=== PATIENT | male | born 1960 | race Caucasian/White ===

== ENCOUNTER 2018-09-20 11:35 | Inpatient (IN) ==
[2018-09-20] MEDS ORDERED: Vancomycin Inj 1,000 MG in Sodium Chlor 0.9% Inj 250 ML IV.SIG ONE (15:09)
[2018-09-20] MEDS ORDERED: Piperacil/Tazo 4.5 GM Premix 4.5 GM/100 ML BAG IV.SIG SCH (15:15)
[2018-09-20 15:39] LABS: Baso # (Auto) 0.1 th/mm3 (0.0-0.2); Baso % (Auto) 0.7 % (0.0-2.0); Eos # (Auto) 0.7 th/mm3 (0.0-0.4); Eos % (Auto) 7.3 % (0.0-4.0); Hematocrit 48.6 % (39.0-51.0); Hemoglobin 16.5 gm/dL (13.0-17.0); Lymph # (Auto) 1.7 th/mm3 (1.0-4.8); Lymph % (Auto) 17.2 % (9.0-44.0); Mean Corpuscular HGB Conc 33.9 % (32.0-36.0); Mean Corpuscular Hemoglobin 32.5 pg (27.0-34.0); Mean Corpuscular Volume 95.8 fL (80.0-100.0); Mean Platelet Volume 8.7 fL (7.0-11.0); Mono # (Auto) 0.6 th/mm3 (0.0-0.9); Mono % (Auto) 6.5 % (0.0-8.0); Neut # (Auto) 6.6 th/mm3 (1.8-7.7); Neut % (Auto) 68.3 % (16.0-70.0); Platelet Count 140 th/mm3 (150-450); Red Blood Count 5.07 mil/mm3 (4.50-5.90); White Blood Count 9.7 th/mm3 (4.0-11.0)
--- NOTE | 2018-09-20 15:44 | ED ---
HPI General Chief complaint: Extremity Problem,Nontraumatic Stated complaint: Left foot complaint Time Seen by Provider: 09/20/18 14:55 Source: patient and family Limitations: no limitations History of Present Illness HPI Narrative: Patient is a 58-year-old male, medical history significant for AAA and osteoarthritis, who presents with complaint of left foot wound. He states that he works at [employer] and was emptying a large object approximately 1 month ago when it dropped onto his foot and punctured his boot which then punctured his foot. He was on antibiotics for 1 week and reports some improvement. He still had some chronic wound to his great toe but states it was doing well. he worked heavily over the last several days and has had sudden worsening. He has not had fever or chills. He went to the [place] [facility] where he was told he needed to come to the emergency department for IV antibiotics. He states that his foot is red and it has started to go up his ankle all of a sudden. He does not have pain outside of the erythematous regions. MD Complaint: Reports extremity pain and extremity swelling Onset (ago): day(s) Pain Consistency: constant Location: Reports left Quality: Reports aching and dull Radiation: Reports proximal Relieving factors: nothing Exacerbating factors: walking and palpation Associated symptoms: Reports denies other symptoms Context: Reports other Related Data Home Medications Medication Instructions Recorded Confirmed No Known Home Medications 09/20/18 09/20/18 Allergies Allergy/AdvReac Type Severity Reaction Status Date / Time No Known Allergies Allergy Verified 09/20/18 12:13 Review of Systems ROS: all other systems reviewed are negative [facility] Medical History Medical History AAA (abdominal aortic aneurysm) without rupture (Acute) Osteoarthritis (Acute) Patient denies medical problems (Acute) Social History Social History Substance History: No History of Abuse Second Hand Smoke Exposure: No Smoking Status: Current every day smoker Tobacco Type: Cigarettes How Often Do You Have a Drink Containing Alcohol: Monthly or less Recent [facility] within the Last 8 Weeks: No Recent Out of Country Travel within the Last 8 Weeks: No Immunization History Tetanus Immunization: <5 Years Tetanus Immunization Year if Known: 2018 Exam Narrative Exam Narrative: GENERAL: Well-appearing pleasant male in no acute distress SKIN: Focused skin assessment warm/dry. Erythematous regions to much of the top of the left foot with areas of dark possible necrosis to the bottom of several toes with a wet wound. He does have erythema just proximal to the ankles. No pain out of proportion. HEAD: Atraumatic. Normocephalic. EYES: Pupils equal and round. No scleral icterus. No injection or drainage. ENT: No nasal bleeding or discharge. Mucous membranes pink and moist. NECK: Trachea midline. No JVD. CARDIOVASCULAR: Regular rate and rhythm. No murmur appreciated. Intact and equal peripheral pulses. RESPIRATORY: No accessory muscle use. Clear to auscultation. Breath sounds equal bilaterally. GASTROINTESTINAL: Abdomen soft, non-tender, nondistended. Hepatic and splenic margins not palpable. MUSCULOSKELETAL: No obvious deformities. No clubbing. No cyanosis. No edema. NEUROLOGICAL: Awake and alert. No obvious cranial nerve deficits. Motor grossly within normal limits. Normal speech. PSYCHIATRIC: Appropriate mood and affect; insight and judgment normal. Course Initial Documented Vital Signs Temperature 98.3 F 09/20/18 12:09 Pulse Rate 84 09/20/18 12:09 Respiratory Rate 18 09/20/18 12:09 Blood Pressure 141/78 H 09/20/18 12:09 Pulse Oximetry 97 09/20/18 12:09 Last Documented Vital Signs Temperature 98.3 F 09/20/18 12:09 Pulse Rate 77 09/20/18 15:44 Respiratory Rate 18 09/20/18 15:44 Blood Pressure 127/76 09/20/18 15:44 Pulse Oximetry 98 09/20/18 15:44 Medical Decision Making [facility] Narrative Medical decision making narrative: Patient is a 58-year-old male who came with complaint of left foot wound has suddenly worsened over the last several days. He appears well but the wound is concerning. He has been hemodynamically stable while in the emergency department but nonetheless was empirically started on vancomycin and Zosyn. Lab work is relatively unremarkable and x-ray does not show gas and only shows chronic changes. I spoke to Dr. Cox, wet pan mixer on-call, regarding the patient's foot. He is going to see the patient when he is finished with his current case. The patient will be admitted for further evaluation and management. Medical Screen Exam Complete: Yes Emergency Medical Condition: Yes Differential Diagnosis Differential Diagnosis: Differential diagnosis includes but is not limited to cellulitis, necrotizing fasciitis, osteomyelitis. Medical Records Medical records reviewed: Yes I reviewed the patient's medical records. Lab Data Result diagrams: 09/20/18 15:20 09/20/18 15:20 Lab Results 09/20/18 09/20/18 09/20/18 Range/Units 15:20 15:20 15:20 WBC 9.7 (4.0-11.0) th/mm3 RBC 5.07 (4.50-5.90) mil/mm3 Hgb 16.5 (13.0-17.0) gm/dL Hct 48.6 (39.0-51.0) % MCV 95.8 (80.0-100.0) fL MCH 32.5 (27.0-34.0) pg MCHC 33.9 (32.0-36.0) % RDW 14.0 (11.6-17.2) % Plt Count 140 L (150-450) th/mm3 MPV 8.7 (7.0-11.0) fL Neut % (Auto) 68.3 (16.0-70.0) % Lymph % (Auto) 17.2 (9.0-44.0) % [place] % (Auto) 6.5 (0.0-8.0) % Eos % (Auto) 7.3 H (0.0-4.0) % Baso % (Auto) 0.7 (0.0-2.0) % Neut # (Auto) 6.6 (1.8-7.7) th/mm3 Lymph # (Auto) 1.7 (1.0-4.8) th/mm3 [place] # (Auto) 0.6 (0.0-0.9) th/mm3 Eos # (Auto) 0.7 H (0.0-0.4) th/mm3 Baso # (Auto) 0.1 (0.0-0.2) th/mm3 WBC Differential . Differential Comment Auto diff final ESR 1 (0-20) mm/hr Sodium 140 (136-145) meq/L Potassium 5.3 H (3.5-5.1) meq/L Chloride 109 H (98-107) meq/L Carbon Dioxide 28.8 (21.0-32.0) meq/L Anion Gap 2 L (5-15) meq/L BUN 15 (7-18) mg/dL Creatinine 1.10 (0.60-1.30) mg/dL Estimated GFR 69 L (>89) mL/min Random Glucose 102 (74-106) mg/dL Calcium 8.3 L (8.5-10.1) mg/dL C-Reactive Protein 3.32 H (0.00-0.30) mg/dL Imaging Data Radiologist's impression: Foot X-Ray 09/20/18 15:09 CONCLUSION: Chronic changes and no definite fracture for technique. Discharge Plan Discharge Disposition Patient Disposition: ED Admit(ED Internal Use Only) Discharge Condition Condition: Stable Discharge Order Discharge Orders: ED Use Only Admit Order (Routine); Ordered 09/20/18 Ordered By: Rebecca Goins Discharge Details Diagnosis: Cellulitis Physicians Team ED Provider: Rebecca Goins Primary Care Provider: [facility],Physician 's Attending Provider: Keith Ramírez Status ED Status: Admitted Patient
--- NOTE | 2018-09-20 15:58 | XR ---
EXAM DATE: 09/20/2018 3:54 PM EST AGE/SEX: 58 years / Male INDICATIONS: Left foot pain and inflammation 1 month post dropping bucket on foot. Inflammation to a ll 5 digits. CLINICAL DATA: This is the patient's initial encounter. Patient reports that signs and symptoms have been present for 1 month and indicates a pain score of 7/10. MEDICAL/SURGICAL HISTORY: None. None. COMPARISON: No prior exams available for comparison. FINDINGS: No definite fracture is identified for technique. Degenerative osteoarthritis is present within multiple interphalangeal joints and first metatarsophal angeal joint worse involving the first metatarsophalangeal joint to a slight degree. Small calcaneal spur is present at the fracture site of the plantar aponeurosis and Achilles tendon. CONCLUSION: Chronic changes and no definite fracture for technique. Electronically signed by: Anne Cheema MD Board Certified Radiologist 09/20/2018 3:57 PM EST
[2018-09-20 16:13] LABS: C-Reactive Protein 3.32 mg/dL (0.00-0.30); Calcium 8.3 mg/dL (8.5-10.1); Carbon Dioxide 28.8 meq/L (21.0-32.0)
[2018-09-20 16:16] LABS: Potassium 5.3 meq/L (3.5-5.1)
--- NOTE | 2018-09-20 17:16 | P.HPFP ---
History of Present Illness Primary Care Physician: [facility] <Keith Ramírez 09/20/18 21:16> [facility] <Liana Horowitz V 09/20/18 17:15> Chief Complaint: foot infection <Liana Horowitz V 09/20/18 17:15> History of Present Illness: Mr Murguia, work [employer], about a month ago a grease bucket slipped from hand and fell into L foot, creating a laceration. Small scrape, did not bleed. Boot was tore. Pt went to [place], and received antibiotics for one week. With improvement, but since then it started progresively getting worse. Today He saw a Dr at the [place], and was told to come to ED for evaluation. Pt states is painful, aching, if wrapped in bandages is a pulsating pain. From time to time he gets a sharp pain, he thinks is nerve pain. Wound is also oozing clear/ pink discharge from all over, to the point ot wets his entire socks. Cannot tell temperature difference. No fevers, no chills. PMH: rectal muscle fascia separation. Poor dentition Surgeries: none Social: Used to be in the [employer] for 3 yrs, now works at [employer] as a cook. Lives with , for 22 yrs. Smokes a pack/ days, cigarettes, smoked since 11. Never quit smoking. Does not drink alcohol. Denies recreational drug use. Family: Mother, living, has one lung, unknown etiology. Sister, healthy as far as he knows. Medications: none Allergies: NKA <Liana Horowitz V 09/20/18 17:15> - Diagnosis (1) Cellulitis (2) Left foot infection (3) Smoking addiction (4) Nutrition, metabolism, and development symptoms (5) DVT prophylaxis <Keith Ramírez 09/20/18 21:16> (1) Cellulitis (2) Left foot infection (3) Smoking addiction (4) Nutrition, metabolism, and development symptoms (5) DVT prophylaxis <Liana Horowitz V 09/20/18 18:37> Inpatient Certification: I certify that the inpatient services were ordered in accordance with Medicare regulations governing the order. This includes certification that hospital inpatient services are reasonable and necessary and in the case of services not specified as inpatient-only under 42 CFR 419.22(n), that they are appropriately provided as inpatient services in accordance to with the 2-midnight benchmark under 43 CFR 412.3(e) <Keith Ramírez - 09/20/18 20:55> Review of Systems Constitutional: Denies body ache(s), Denies chills, Denies fever(s), Denies night sweats <Sahramirna Clarke [facility] 09/20/18 17:15> Ears, Nose, Mouth, and Throat: Denies dental pain <Sahra [address] 09/20/18 17:15> Cardiovascular: Denies chest pain, Denies shortness of breath, Denies shortness of breath with activity <Sahra [address] 09/20/18 17:15> Respiratory: Denies cough, Denies wheezing <Sahra [address] 17:15> Gastrointestinal: Denies abdominal pain, Denies nausea, Denies vomiting < Sahra [address] 09/20/18 17:15> Genitourinary: Denies urinary frequency, Denies urinary hesitancy, Denies urinary urgency <Sahramirna Clarke [address] 09/20/18 17:15> Musculoskeletal: Reports abnormal walking (Limping due to injury), Reports joint swelling, Reports limited joint movement <Sahramirna Clarke [address] 11/07 17:15> Skin/Breast: Reports lesions, Reports non-healing lesions, Reports redness, Reports skin ulcer, Reports wounds <Sahra [address] 09/20/18 17:15> PMFSH - History History Provided By: Patient <Sahra Clarke [address] 09/20/18 17:15> - Medical / Surgical Hx Neg / Unobtainable Medical Problems Denied: Yes <Sahra Clarke [facility] 09/20/18 17:15> Surgical History: No Previous Surgery <Sahramirna Clarke [address] 09/20/18 17: 15> - Medical History Medical History: Medical History (Last Reviewed 09/20/18 @ 17:15 by Liana Lopez MD , R1) AAA (abdominal aortic aneurysm) without rupture Osteoarthritis Patient denies medical problems <Keith Ramírez - 09/20/18 20:55> Medical History (Last Reviewed 09/20/18 @ 17:15 by Liana Lopez MD , R1) AAA (abdominal aortic aneurysm) without rupture Osteoarthritis Patient denies medical problems <Liana Horowitz V 09/20/18 17:15> - Social History I have reviewed the patient's Social History: Yes <Liana Horowitz V 09/20/18 17:15> - Tobacco History Second Hand Smoke Exposure: No <Liana Horowitz V 09/20/18 17:15> Tobacco Use In Past 30 Days: Yes <Liana Horowitz V 09/20/18 17:15> Smoking Status: Current every day smoker <Liana Horowitz V 09/20/18 17:15> Tobacco Type: Cigarettes <Sahra Goreira Liana Lopez V 09/20/18 17:15> Cigarettes Per Day: 20 <Liana Horowitz V 09/20/18 17:15> Years Smoked: 47 <Liana Horowitz V 09/20/18 17:15> - Alcohol History How Often Do You Have a Drink Containing Alcohol: Monthly or less <Liana Horowitz V 09/20/18 17:15> - Substance Use History Substance History: No History of Abuse <Liana Horowitz V 09/20/18 17 :15> - Travel History Recent Travel in the [facility] Within the Last 8 Weeks: No <Liana Horowtiz V 09/20/18 17:15> Recent Travel Out of the Country Within the Last 8 Weeks: No <Liana Horowitz V 09/20/18 17:15> - Immunization History Tetanus Immunization: <5 Years <Liana Horowitz V 09/20/18 17:15> Tetanus Immunization Year if Known: 2017 <Liana Horowitz V 09/20/18 17:15> Medications and Allergies Allergies Allergy/AdvReac Type Severity Reaction Status Date / Time No Known Allergies Allergy Verified 09/20/18 12:13 <Keith Ramírez - 09/20/18 21:16> Home Medications Medication Instructions Recorded Confirmed Type No Known Home Medications 09/20/18 09/20/18 History <Keith Ramírez - 09/20/18 21:16> Active Medications: Active Medications Acetaminophen (Tylenol) 650 mg PO Q4H PRN PRN Reason: Temp > 100.4 Hydrocodone Bitart/Acetaminophen (Malone 5/325) 1 tab PO Q6H PRN PRN Reason: PAIN SCALE 1 TO 10 Enoxaparin Sodium (Lovenox Inj) 40 mg SQ Q24H LELO Piperacillin/Tazobactam/Dextrose (Zosyn 3.375 Gm Premix) 3.375 gm in 50 mls @ 100 mls/hr IV.SIG Q6H LELO Stop: 09/26/18 23:59 Ibuprofen (Motrin) 400 mg PO Q6HR PRN PRN Reason: PAIN 1-10 Naloxone HCl (Narcan Inj) 0.4 mg IV.PUSH UNSCH PRN PRN Reason: SEE LABEL COMMENTS Nicotine (Habitrol 14 Mg Patch.24 Hr) 1 patch T-DERMAL DAILY PRN PRN Reason: craving Ondansetron HCl (Zofran Inj) 4 mg IV.PUSH Q6H PRN PRN Reason: NAUSEA OR VOMITING Patch Removal (Remove Old Patch) 1 each T-DERMAL HS LELO Senna/Docusate Sodium (Evie-Colace) 1 tab PO BID LELO Sodium Chloride (Ns Flush) 2 ml IV.FLUSH BID LELO Sodium Chloride (Ns Flush) 2 ml IV.FLUSH PRN PRN PRN Reason: FLUSH AFTER USING IV ACCESS <Keith Ramírez - 09/20/18 21:16> Active Medications Piperacillin/Tazobactam/Dextrose (Zosyn 4.5 Gm Premix) 4.5 gm in 100 mls @ 200 mls/hr IV.SIG ONCE LELO Last Infusion: 09/20/18 16:10 Dose: Infused <Sahra LopezCarolyn - 09/20/18 17:15> Exam Vital signs: Vital Signs 09/20/18 12:09 09/20/18 15:44 09/20/18 19:17 Temperature 98.3 F Pulse Rate 84 77 69 Respiratory Rate 18 18 18 Blood Pressure 141/78 H 127/76 131/71 Pulse Oximetry 97 98 98 Intake & Output 09/20/18 09/20/18 09/21/18 06:59 18:59 06:59 Intake Total 350 / 350 Balance 350 / 350 Weight 88.904 kg Intake: IV 350 / 350 Zosyn 4.5 GM Premix 4.5 gm In 100 / 100 100 ml @ 200 mls/hr IV.SIG ONCE LELO Rx#:[id number] Vancomycin Inj 1,000 MG In NS 250 / 250 Inj 250 ML @ 250 mls/hr IV.SIG ONCE ONE Rx#:[id number] <Keith Ramírez - 09/20/18 21:16> Vital Signs 09/20/18 12:09 09/20/18 15:44 Temperature 98.3 F Pulse Rate 84 77 Respiratory Rate 18 18 Blood Pressure 141/78 H 127/76 Pulse Oximetry 97 98 Intake & Output 09/19/18 09/20/18 09/20/18 18:59 06:59 18:59 Intake Total 100 / 100 Balance 100 / 100 Weight 88.904 kg Intake: IV 100 / 100 Zosyn 4.5 GM Premix 4.5 gm In 100 / 100 100 ml @ 200 mls/hr IV.SIG ONCE LELO Rx#:[id number] <Liana Horowitz V - 09/20/18 17:15> Results - Labs Result diagrams: 09/20/18 15:20 09/20/18 15:20 <Keith Ramírez - 09/20/18 21:16> Abnormal lab results 09/20/18 09/20/18 Range/Units 15:20 15:20 Plt Count 140 L (150-450) th/mm3 Eos % (Auto) 7.3 H (0.0-4.0) % Eos # (Auto) 0.7 H (0.0-0.4) th/mm3 Potassium 5.3 H (3.5-5.1) meq/L Chloride 109 H (98-107) meq/L Anion Gap 2 L (5-15) meq/L Estimated GFR 69 L (>89) mL/min Calcium 8.3 L (8.5-10.1) mg/dL C-Reactive Protein 3.32 H (0.00-0.30) mg/dL Short CBC 09/20/18 Range/Units 15:20 WBC 9.7 (4.0-11.0) th/mm3 Hgb 16.5 (13.0-17.0) gm/dL Hct 48.6 (39.0-51.0) % Plt Count 140 L (150-450) th/mm3 [place] 09/20/18 15:20 Sodium 140 Potassium 5.3 H Chloride 109 H Carbon Dioxide 28.8 BUN 15 Creatinine 1.10 Calcium 8.3 L <Keith Ramírez 09/20/18 21:16> Abnormal lab results 09/20/18 09/20/18 Range/Units 15:20 15:20 Plt Count 140 L (150-450) th/mm3 Eos % (Auto) 7.3 H (0.0-4.0) % Eos # (Auto) 0.7 H (0.0-0.4) th/mm3 Potassium 5.3 H (3.5-5.1) meq/L Chloride 109 H (98-107) meq/L Anion Gap 2 L (5-15) meq/L Estimated GFR 69 L (>89) mL/min Calcium 8.3 L (8.5-10.1) mg/dL C-Reactive Protein 3.32 H (0.00-0.30) mg/dL Short CBC 09/20/18 Range/Units 15:20 WBC 9.7 (4.0-11.0) th/mm3 Hgb 16.5 (13.0-17.0) gm/dL Hct 48.6 (39.0-51.0) % Plt Count 140 L (150-450) th/mm3 [place] 09/20/18 15:20 Sodium 140 Potassium 5.3 H Chloride 109 H Carbon Dioxide 28.8 BUN 15 Creatinine 1.10 Calcium 8.3 L <Liana Horowitz V - 09/20/18 17:15> - Imaging Impressions Foot X-Ray 09/20/18 15:09 CONCLUSION: Chronic changes and no definite fracture for technique. <Keith Ramírez 09/20/18 21:16> Impressions Foot X-Ray 09/20/18 15:09 CONCLUSION: Chronic changes and no definite fracture for technique. <Liana Horowitz V - 09/20/18 17:15> Caprini VTE Risk Assessment Caprini VTE Risk Assessment: Moderate/High Risk (score >= 2) <Keith Ramírez - 09/20/18 21:16> Caprini Risk Assessment Model: Point Value = 1 Point Value = 2 Point Value = 3 Point Value = 5 Age 41-60 Minor surgery BMI > 25 kg/m2 Swollen legs Varicose veins or History of unexplained or recurrent spontaneous Oral contraceptives or hormone replacement Sepsis (< 1 month) Serious lung disease, including pneumonia (< 1 month) Abnormal pulmonary function Acute myocardial infarction Congestive heart failure (< 1 month) History of inflammatory bowel disease Medical patient at bed rest Age 61-74 Arthroscopic surgery Major open surgery (> 45 min) Laparoscopic surgery (> 45 min) Malignancy Confined to bed (> 72 hours) Immobilizing plaster cast Central venous access Age >= 75 History of VTE Family history of VTE Factor V Leiden Prothrombin [id number] Lupus anticoagulant Anticardiolipin antibodies Elevated serum homocysteine Heparin-induced thrombocytopenia Other congenital or acquired thrombophilia Stroke (< 1 month) Elective arthroplasty Hip, pelvis, or leg fracture Acute spinal cord injury (< 1 month) <Keith Ramírez - 09/20/18 21:15> Point Value = 1 Point Value = 2 Point Value = 3 Point Value = 5 Age 41-60 Minor surgery BMI > 25 kg/m2 Swollen legs Varicose veins or History of unexplained or recurrent spontaneous Oral contraceptives or hormone replacement Sepsis (< 1 month) Serious lung disease, including pneumonia (< 1 month) Abnormal pulmonary function Acute myocardial infarction Congestive heart failure (< 1 month) History of inflammatory bowel disease Medical patient at bed rest Age 61-74 Arthroscopic surgery Major open surgery (> 45 min) Laparoscopic surgery (> 45 min) Malignancy Confined to bed (> 72 hours) Immobilizing plaster cast Central venous access Age >= 75 History of VTE Family history of VTE Factor V Leiden Prothrombin [id number] Lupus anticoagulant Anticardiolipin antibodies Elevated serum homocysteine Heparin-induced thrombocytopenia Other congenital or acquired thrombophilia Stroke (< 1 month) Elective arthroplasty Hip, pelvis, or leg fracture Acute spinal cord injury (< 1 month) <Liana Horowitz V - 09/20/18 17:15> Prophylaxis Regimen: Total Risk Factor Score Risk Level Prophylaxis Regimen 0-1 Low Early ambulation 2 Moderate Order ONE of the following: *Sequential Compression Device (SCD) *Heparin 5000 units SQ BID 3-4 Higher Order ONE of the following medications: *Heparin 5000 units SQ TID *Enoxaparin/Lovenox 40 mg SQ daily (WT < 150 kg, CrCl > 30 mL/min) *Enoxaparin/Lovenox 30 mg SQ daily (WT < 150 kg, CrCl > 10-29 mL/min) *Enoxaparin/Lovenox 30 mg SQ BID (WT < 150 kg, CrCl > 30 mL/min) AND/OR *Sequential Compression Device (SCD) 5 or more Highest Order ONE of the following medications: *Heparin 5000 units SQ TID (Preferred with Epidurals) *Enoxaparin/Lovenox 40 mg SQ daily (WT < 150 kg, CrCl > 30 mL/min) *Enoxaparin/Lovenox 30 mg SQ daily (WT < 150 kg, CrCl > 10-29 mL/min) *Enoxaparin/Lovenox 30 mg SQ BID (WT < 150 kg, CrCl > 30 mL/min) AND *Sequential Compression Device (SCD) <Keith Ramírez - 09/20/18 21:15> Total Risk Factor Score Risk Level Prophylaxis Regimen 0-1 Low Early ambulation 2 Moderate Order ONE of the following: *Sequential Compression Device (SCD) *Heparin 5000 units SQ BID 3-4 Higher Order ONE of the following medications: *Heparin 5000 units SQ TID *Enoxaparin/Lovenox 40 mg SQ daily (WT < 150 kg, CrCl > 30 mL/min) *Enoxaparin/Lovenox 30 mg SQ daily (WT < 150 kg, CrCl > 10-29 mL/min) *Enoxaparin/Lovenox 30 mg SQ BID (WT < 150 kg, CrCl > 30 mL/min) AND/OR *Sequential Compression Device (SCD) 5 or more Highest Order ONE of the following medications: *Heparin 5000 units SQ TID (Preferred with Epidurals) *Enoxaparin/Lovenox 40 mg SQ daily (WT < 150 kg, CrCl > 30 mL/min) *Enoxaparin/Lovenox 30 mg SQ daily (WT < 150 kg, CrCl > 10-29 mL/min) *Enoxaparin/Lovenox 30 mg SQ BID (WT < 150 kg, CrCl > 30 mL/min) AND *Sequential Compression Device (SCD) <Liana Horowitz V - 09/20/18 17:15> Assessment and Plan - Assessment (1) Cellulitis Code(s): L03.90 - Cellulitis, unspecified Status: Acute (2) Left foot infection Code(s): L08.9 - Local infection of the skin and subcutaneous tissue, unspecified Status: Acute (3) Smoking addiction Code(s): F17.200 - Nicotine dependence, unspecified, uncomplicated Status: Acute (4) Nutrition, metabolism, and development symptoms Code(s): R63.8 - Other symptoms and signs concerning food and fluid intake Status: Acute (5) DVT prophylaxis Status: Acute <Keith Ramírez - 09/20/18 21:16> (1) Cellulitis Code(s): L03.90 - Cellulitis, unspecified Status: Acute (2) Left foot infection Code(s): L08.9 - Local infection of the skin and subcutaneous tissue, unspecified Status: Acute (3) Smoking addiction Code(s): F17.200 - Nicotine dependence, unspecified, uncomplicated Status: Acute (4) Nutrition, metabolism, and development symptoms Code(s): R63.8 - Other symptoms and signs concerning food and fluid intake Status: Acute (5) DVT prophylaxis Status: Acute <Liana Horowitz V - 09/20/18 18:37> - Assessment and Plan 58-year-old male, with no PMH, admitted to the hospital due to left foot infection of one month duration, worsening in the last 2 days. Differential diagnoses include but not limited to cellulitis, osteomyelitis, necrosis of the toes. Infection of the left foot/cellulitis WBC within normal limits S/p 4.5 g of Zosyn IV once and vancomycin 1 g IV once X-ray with chronic changes and not fracture -Consult to podiatry, appreciate recommendations -Wound cultures pending -Continue Zosyn 4.5 g IV every 12 hours -We will keep n.p.o. for now Smoking 47-year history of smoking at least 1 pack/day Smoking cessation counseling provided -Nicotine patches available as needed FEN: - PO hydration - Monitor replace electrolytes as needed - Regular diet PPX: - Lovenox 40mg daily for DVT ppx - Zofran prn for nausea Pt seen and discussed with Dr. Ramírez <Liana Horowitz V - 09/20/18 18:54> - Attending Attestation The exam, history, and the medical decision-making described in the above note were completed with the assistance of the resident physician. I reviewed and agree with the findings presented. I attest that I had a [id number] encounter with the patient on the same day, and personally performed and documented my assessment and findings in the medical record. Examined with resident today. Despite smoking history including AAA, still has good peripheral pulses. but has weeping and macerated ventral forefoot with erythema and edema significant dorsally, no bullae. 1. Cellulitis of left foot Failed outpatient treatment Podiatry consulted, MRI pending Cont Vanc and Zosyn empirically before deep cultures Will need [facility] Check A1c 2. Tobacco use nicotine patch, admissions counselor on cessation 3. Hypertension Monitor and treat if needed 4. Thrombocytopenia Mild, will recheck. DVT ppx, will give this evening so as not to give tomorrow in AM in case podiatry wants 12 hrs before OR, can have diet when podiatry makes operative plan. <Keith Ramírez - 09/20/18 20:55> <Liana Horowitz V - Last Filed: 09/20/18 18:37> (1) Cellulitis Qualifiers: Site of cellulitis: extremity Laterality: left <Keith Ramírez K - Last Filed: 09/20/18 21:16> (1) Cellulitis Qualifiers: Site of cellulitis: extremity Laterality: left <Sahra Clarke Liana Lopez V - Last Filed: 09/20/18 18:37> (1) Cellulitis Qualifiers: Site of cellulitis: extremity Laterality: left <Keith Ramírez K - Last Filed: 09/20/18 21:16> (1) Cellulitis Qualifiers: Site of cellulitis: extremity Laterality: left
[2018-09-20] MEDS ORDERED: Acetaminophen 325 MG Tablet PO PRN (17:25)
[2018-09-20] MEDS ORDERED: Enoxaparin Inj 40 MG/0.4 ML Syringe SQ SCH (17:30)
[2018-09-20] MEDS ORDERED: Ibuprofen 400 MG Tablet PO PRN (17:31)
[2018-09-20] MEDS ORDERED: Naloxone Inj 0.4 MG/ML Vial IV.PUSH PRN (17:31)
--- NOTE | 2018-09-20 19:53 | MB ---
cc: William Cox DPM DATE: 09/20/2018 REASON FOR CONSULTATION: Infection, cellulitis, left foot. HISTORY OF PRESENT ILLNESS: This is a 58-year-old male who sustained some form of puncture wound or a crush injury where a heavy bucket was dropped on his foot. It punctured his boot, and he was sent to the [facility]. He took antibiotics for a week. He reported some improvement. He continued to work many hours per day and continued to smoke a pack of cigarettes a day. He noticed increased redness, drainage, and it started to ascend to his ankle and calf. Currently, I am seeing the patient at bedside. He denies any fevers or nausea. He is having some pain of his left lower extremity. PAST MEDICAL HISTORY: Abdominal aortic aneurysm without rupture. Osteoarthritis. No substance abuse. He is a current every day smoker. I am unsure of the antibiotics he had from the [place] over the past week. Inpatient medications, p.r.n. medication. He is also receiving Zosyn and vancomycin. ALLERGIES: If not stated, none listed. PHYSICAL EXAMINATION: GENERAL: Alert and oriented male seen at bedside, exhibiting unlabored respirations. He is verbal, appropriate. EXTREMITIES: The bilateral lower extremities are examined. Left lower extremity: There is noted to be expansile erythema and plantar purpura and skin sloughing of the sulcus of the foot. The foot appears to be warm. There is palpable pulses, dorsalis pedis and posterior tibialis. The distal aspect of the digits 1 through 5, there is capillary fill time. The patient has difficulty with range of motion secondary to the swelling. The redness appears to involve mainly the distal forefoot. There is no obvious puncture wound that could be seen. There are no obvious clinical signs of gas within the tissue or fluctuance. Right lower extremity is unremarkable. LABORATORY FINDINGS: White blood cell 9, hemoglobin and hematocrit 16 and 48, platelet count 140. ESR 1. Chem-7: Sodium 140, potassium 5.3, chloride 109, BUN 15, creatinine 1.1, estimated GFR 69. Random glucose is 102. Hemoglobin A1c pending. C-reactive protein is 3.32. Microbial findings: Blood and foot cultures ordered and pending. X-rays: No gas within the tissue. No obvious acute fracture. There are chronic changes, most consistent with osteoarthritis. MRI ordered and pending. ASSESSMENT AND PLAN: Left foot cellulitis, rule out abscess. PLAN: Operative debridement, and deep cultures will be taken within the next 24 hours. MRI is pending, so there may be a more formal incision and drainage. The patient will be n.p.o. after midnight. I do feel that the patient has adequate circulation despite smoking a pack a day for many years. He was counseled that in order to heal, he needed to quit. I will sign out the patient to Dr. Archie Clark who will assume care starting in the a.m. JACKIE Bojorquez/lou , 07:18 PM , 07:27 PM
[2018-09-20] MEDS ORDERED: Gadobutrol PF 10 MMOL/10 ML Vial (for RAD) IV.SIG ONE (21:02)
[2018-09-20 21:25] LABS: Hemoglobin A1c 5.7 % (4.3-6.0)
[2018-09-20] MEDS: Enoxaparin Inj 40 MG/0.4 ML Syringe SQ SCH (23:24)
[2018-09-20] MEDS: Senna/Docusate Sodium 8.6/50 MG Tablet PO SCH (23:25)
[2018-09-20] MEDS: Piperacil/Tazo 3.375 GM Premix 3.375 GM/50 ML PIGGYBACK IV.SIG SCH (23:30)
[2018-09-21] MEDS ORDERED: Piperacil/Tazo 4.5 GM Premix 4.5 GM/100 ML BAG IV.SIG SCH (04:00)
[2018-09-21] MEDS: Piperacil/Tazo 3.375 GM Premix 3.375 GM/50 ML PIGGYBACK IV.SIG SCH ×3 (05:48→16:42)
[2018-09-21 07:31] LABS: Baso # (Auto) 0.1 th/mm3 (0.0-0.2); Baso % (Auto) 0.7 % (0.0-2.0); Eos # (Auto) 0.7 th/mm3 (0.0-0.4); Eos % (Auto) 8.7 % (0.0-4.0); Hematocrit 46.6 % (39.0-51.0); Hemoglobin 15.7 gm/dL (13.0-17.0); Lymph # (Auto) 1.5 th/mm3 (1.0-4.8); Lymph % (Auto) 17.5 % (9.0-44.0); Mean Corpuscular HGB Conc 33.8 % (32.0-36.0); Mean Corpuscular Hemoglobin 32.2 pg (27.0-34.0); Mean Corpuscular Volume 95.4 fL (80.0-100.0); Mean Platelet Volume 9.1 fL (7.0-11.0); Mono # (Auto) 0.8 th/mm3 (0.0-0.9); Mono % (Auto) 9.6 % (0.0-8.0); Neut # (Auto) 5.4 th/mm3 (1.8-7.7); Neut % (Auto) 63.5 % (16.0-70.0); Platelet Count 120 th/mm3 (150-450); Red Blood Count 4.89 mil/mm3 (4.50-5.90); Red Cell Distribution Width 13.4 % (11.6-17.2); White Blood Count 8.5 th/mm3 (4.0-11.0)
[2018-09-21 08:18] LABS: Alanine Aminotransferase 19 U/L (12-78); Albumin 2.8 g/dL (3.4-5.0); Alkaline Phosphatase 77 U/L (45-117); Anion Gap 6 meq/L (5-15); Aspartate Aminotransferase 18 U/L (15-37); Blood Urea Nitrogen 14 mg/dL (7-18); Calcium 7.7 mg/dL (8.5-10.1); Carbon Dioxide 23.9 meq/L (21.0-32.0); Chloride 110 meq/L (98-107); Glomerular Filtration Rate 84 mL/min (>89); Glucose,Random 105 mg/dL (74-106); Sodium 140 meq/L (136-145); Total Protein 6.3 g/dL (6.4-8.2)
[2018-09-21] MEDS ORDERED: Vancomycin Inj 1,000 MG in Sodium Chlor 0.9% Inj 250 ML IV.SIG SCH (09:23)
[2018-09-21] MEDS ORDERED: Vancomycin Consult Pharmacy OTHER PRN (09:25)
--- NOTE | 2018-09-21 09:39 | MR ---
EXAM DATE: 09/20/2018 9:32 PM EST AGE/SEX: 58 years / Male INDICATIONS: Abscess. Non healing medial side of great toe wound CLINICAL DATA: This is the patient's initial encounter. Patient reports that signs and symptoms have been present for 1 month and indicates a pain score of 7/10. MEDICAL/SURGICAL HISTORY: None. None. COMPARISON: No prior exams available for comparison. TECHNIQUE: Multiplanar, multisequence MRI examination was performed without contrast and after th e intravenous administration of 8.5 ml Gadavist (gadobutrol) single exam dose. FINDINGS: There is ill-defined superficial soft tissue at edema and enhancement of the forefoot involving all t he toes. This finding is most prominent at the great toe. No organized peripherally enhancing fluid c ollection identified. Bone marrow signal is homogeneous and within normal limits. No evidence of focal bone erosion. There is mild irregularity of the great toe sesamoids indicating arthritic change. All of the visualized tendons are intact. CONCLUSION: 1. Ill-defined soft tissue edema and enhancement of the forefoot, most prominent at the great toe in dicating cellulitis in the proper clinical setting. No evidence of peripherally enhancing fluid colle ction/abscess. 2. No evidence of osteomyelitis. Electronically signed by: Martell Conroy MD Board Certified Radiologist 09/21/2018 9:38 AM EST
[2018-09-21] MEDS: Senna/Docusate Sodium 8.6/50 MG Tablet PO SCH ×2 (10:04→23:57)
[2018-09-21] MEDS: Vancomycin Inj 1,500 MG in Sodium Chlor 0.9% Inj 500 ML IV.SIG SCH (12:11)
--- NOTE | 2018-09-21 12:31 | P.PNFP ---
Subjective Interval history: NAEON. Mr. Murguia slept fine last night. He has been started on a clear liquid diet because Dr. Cox has allowed this. He will be held n.p.o. after noon today because he will go to the OR after [address] Clark will be taking over for Dr. Cox. His MRI of the foot is still pending as well as his A1c level. We have restarted his vancomycin. Denies chest pain, shortness of breath, nausea vomiting, diarrhea, and abdominal pain. <Ashok BegumAndrea H - 09/21/18 15:11> Results - Labs Result diagrams: 09/21/18 06:35 09/21/18 06:35 <Keith Ramírez - 09/21/18 16:13> Abnormal lab results 09/20/18 09/21/18 09/21/18 Range/Units 15:20 06:35 06:35 Plt Count 120 L (150-450) th/mm3 [place] % (Auto) 9.6 H (0.0-8.0) % Eos % (Auto) 8.7 H (0.0-4.0) % Eos # (Auto) 0.7 H (0.0-0.4) th/mm3 Potassium 5.3 H (3.5-5.1) meq/L Chloride 109 H 110 H (98-107) meq/L Anion Gap 2 L (5-15) meq/L Estimated GFR 69 L 84 L (>89) mL/min Calcium 8.3 L 7.7 L (8.5-10.1) mg/dL Total Bilirubin 0.1 L (0.2-1.0) mg/dL C-Reactive Protein 3.32 H (0.00-0.30) mg/dL Total Protein 6.3 L (6.4-8.2) g/dL Albumin 2.8 L (3.4-5.0) g/dL Short CBC 09/21/18 Range/Units 06:35 WBC 8.5 (4.0-11.0) th/mm3 Hgb 15.7 (13.0-17.0) gm/dL Hct 46.6 (39.0-51.0) % Plt Count 120 L (150-450) th/mm3 BMP 09/20/18 09/21/18 15:20 06:35 Sodium 140 140 Potassium 5.3 H 4.0 D Chloride 109 H 110 H Carbon Dioxide 28.8 23.9 BUN 15 14 Creatinine 1.10 0.92 Calcium 8.3 L 7.7 L Liver Function 09/21/18 Range/Units 06:35 Total Bilirubin 0.1 L (0.2-1.0) mg/dL AST 18 (15-37) U/L ALT 19 (12-78) U/L Alkaline Phosphatase 77 (45-117) U/L Albumin 2.8 L (3.4-5.0) g/dL <Keith Ramírez K - 09/21/18 16:13> Abnormal lab results 09/20/18 09/20/18 09/21/18 Range/Units 15:20 15:20 06:35 Plt Count 140 L 120 L (150-450) th/mm3 [place] % (Auto) 9.6 H (0.0-8.0) % Eos % (Auto) 7.3 H 8.7 H (0.0-4.0) % Eos # (Auto) 0.7 H 0.7 H (0.0-0.4) th/mm3 Potassium 5.3 H (3.5-5.1) meq/L Chloride 109 H (98-107) meq/L Anion Gap 2 L (5-15) meq/L Estimated GFR 69 L (>89) mL/min Calcium 8.3 L (8.5-10.1) mg/dL Total Bilirubin (0.2-1.0) mg/dL C-Reactive Protein 3.32 H (0.00-0.30) mg/dL Total Protein (6.4-8.2) g/dL Albumin (3.4-5.0) g/dL 09/21/18 Range/Units 06:35 Plt Count (150-450) th/mm3 [place] % (Auto) (0.0-8.0) % Eos % (Auto) (0.0-4.0) % Eos # (Auto) (0.0-0.4) th/mm3 Potassium (3.5-5.1) meq/L Chloride 110 H (98-107) meq/L Anion Gap (5-15) meq/L Estimated GFR 84 L (>89) mL/min Calcium 7.7 L (8.5-10.1) mg/dL Total Bilirubin 0.1 L (0.2-1.0) mg/dL C-Reactive Protein (0.00-0.30) mg/dL Total Protein 6.3 L (6.4-8.2) g/dL Albumin 2.8 L (3.4-5.0) g/dL Short CBC 09/20/18 09/21/18 Range/Units 15:20 06:35 WBC 9.7 8.5 (4.0-11.0) th/mm3 Hgb 16.5 15.7 (13.0-17.0) gm/dL Hct 48.6 46.6 (39.0-51.0) % Plt Count 140 L 120 L (150-450) th/mm3 BMP 09/20/18 09/21/18 15:20 06:35 Sodium 140 140 Potassium 5.3 H 4.0 D Chloride 109 H 110 H Carbon Dioxide 28.8 23.9 BUN 15 14 Creatinine 1.10 0.92 Calcium 8.3 L 7.7 L Liver Function 09/21/18 Range/Units 06:35 Total Bilirubin 0.1 L (0.2-1.0) mg/dL AST 18 (15-37) U/L ALT 19 (12-78) U/L Alkaline Phosphatase 77 (45-117) U/L Albumin 2.8 L (3.4-5.0) g/dL <Ashok BegumAndrea H - 09/21/18 12:31> - Imaging Impressions Foot MRI 09/20/18 00:00 CONCLUSION: 1. Ill-defined soft tissue edema and enhancement of the forefoot, most prominent at the great toe indicating cellulitis in the proper clinical setting. No evidence of peripherally enhancing fluid collection/abscess. 2. No evidence of osteomyelitis. <Keith Ramírez - 09/21/18 16:13> Impressions Foot MRI 09/20/18 00:00 CONCLUSION: 1. Ill-defined soft tissue edema and enhancement of the forefoot, most prominent at the great toe indicating cellulitis in the proper clinical setting. No evidence of peripherally enhancing fluid collection/abscess. 2. No evidence of osteomyelitis. Foot X-Ray 09/20/18 15:09 CONCLUSION: Chronic changes and no definite fracture for technique. <Ashok III Andrea Begum H - 09/21/18 12:31> Physical Exam Vital signs: Vital Signs 09/20/18 19:17 09/21/18 00:00 09/21/18 04:00 Temperature 97.8 F 98.4 F Pulse Rate 69 72 72 Respiratory Rate 18 16 16 Blood Pressure 131/71 108/60 115/64 Pulse Oximetry 98 95 94 L 09/21/18 07:48 09/21/18 12:07 09/21/18 15:28 Temperature 97.9 F 97.8 F 97.9 F Pulse Rate 63 58 L 61 Respiratory Rate 16 16 16 Blood Pressure 111/62 130/68 121/74 Pulse Oximetry 93 L 94 L 97 Intake & Output 09/20/18 09/21/18 09/21/18 18:59 06:59 18:59 Intake Total 350 / 350 50 / 50 100 / 100 Balance 350 / 350 50 / 50 100 / 100 Weight 88.904 kg 88.904 kg Intake: IV 350 / 350 50 / 50 100 / 100 Zosyn 3.375 GM Premix 3.375 gm 50 / 50 100 / 100 In 50 ml @ 100 mls/hr IV.SIG Q6H LELO Rx#:[id number] Zosyn 4.5 GM Premix 4.5 gm In 100 / 100 100 ml @ 200 mls/hr IV.SIG ONCE LELO Rx#:[id number] Vancomycin Inj 1,000 MG In NS 250 / 250 Inj 250 ML @ 250 mls/hr IV.SIG ONCE ONE Rx#:[id number] Oral 0 / 0 Other: # Voids 3 Date of Last Bowel Movement 09/20/18 09/20/18 Weight On Admission 88.904 kg <Keith Ramírez - 09/21/18 16:13> Vital Signs 09/20/18 15:44 09/20/18 19:17 09/21/18 00:00 Temperature 97.8 F Pulse Rate 77 69 72 Respiratory Rate 18 18 16 Blood Pressure 127/76 131/71 108/60 Pulse Oximetry 98 98 95 09/21/18 04:00 09/21/18 07:48 09/21/18 12:07 Temperature 98.4 F 97.9 F 97.8 F Pulse Rate 72 63 58 L Respiratory Rate 16 16 16 Blood Pressure 115/64 111/62 130/68 Pulse Oximetry 94 L 93 L 94 L Intake & Output 09/20/18 09/21/18 09/21/18 18:59 06:59 18:59 Intake Total 350 / 350 50 / 50 100 / 100 Balance 350 / 350 50 / 50 100 / 100 Weight 88.904 kg 88.904 kg Intake: IV 350 / 350 50 / 50 100 / 100 Zosyn 3.375 GM Premix 3.375 gm 50 / 50 100 / 100 In 50 ml @ 100 mls/hr IV.SIG Q6H LELO Rx#:[id number] Zosyn 4.5 GM Premix 4.5 gm In 100 / 100 100 ml @ 200 mls/hr IV.SIG ONCE LELO Rx#:[id number] Vancomycin Inj 1,000 MG In NS 250 / 250 Inj 250 ML @ 250 mls/hr IV.SIG ONCE ONE Rx#:[id number] Oral 0 / 0 Other: # Voids 3 Date of Last Bowel Movement 09/20/18 09/20/18 Weight On Admission 88.904 kg <Ashok PATEL Andrea Begum - 09/21/18 12:31> Narrative: GENERAL: 58 YO male with [employer] ballcap on, lying in bed in [facility]. SKIN: Warm and dry. No rash or lesion. HEAD: Normocephalic. Atraumatic. MMM. EYES: No scleral icterus. No injection or drainage. EOMI/PERRLA. NECK: Supple, trachea midline. No JVD or lymphadenopathy. CARDIOVASCULAR: Regular rate and rhythm without murmurs, gallops, or rubs. RESPIRATORY: Breath sounds equal bilaterally. No accessory muscle use. GASTROINTESTINAL: Abdomen soft, non-tender, nondistended. BS+ MUSCULOSKELETAL: No cyanosis, or edema. Left foot wrapped in gauze with dried drainage on the dressing. BACK: Nontender without obvious deformity. No CVA tenderness. <Ashok PATEL Andrea Begum - 09/21/18 15:11> Assessment and Plan - Assessment (1) Cellulitis Code(s): L03.90 - Cellulitis, unspecified Status: Acute (2) Left foot infection Code(s): L08.9 - Local infection of the skin and subcutaneous tissue, unspecified Status: Acute (3) Smoking addiction Code(s): F17.200 - Nicotine dependence, unspecified, uncomplicated Status: Acute (4) Nutrition, metabolism, and development symptoms Code(s): R63.8 - Other symptoms and signs concerning food and fluid intake Status: Acute (5) DVT prophylaxis Status: Acute <MaryanKeith santos - 09/21/18 16:13> (1) Cellulitis Code(s): L03.90 - Cellulitis, unspecified Status: Acute (2) Left foot infection Code(s): L08.9 - Local infection of the skin and subcutaneous tissue, unspecified Status: Acute (3) Smoking addiction Code(s): F17.200 - Nicotine dependence, unspecified, uncomplicated Status: Acute (4) Nutrition, metabolism, and development symptoms Code(s): R63.8 - Other symptoms and signs concerning food and fluid intake Status: Acute (5) DVT prophylaxis Status: Acute <Ashok PATEL Andrea Begum - 09/21/18 14:52> - Assessment and Plan 58-year-old male, with no PMH, admitted to the hospital due to left foot infection of one month duration, worsening in the last 2 days. Differential diagnoses include but not limited to cellulitis, osteomyelitis, necrosis of the toes. Infection of the left foot/cellulitis WBC within normal limits S/p 4.5 g of Zosyn IV once and vancomycin 1 g IV once X-ray with chronic changes and not fracture -Consult to podiatry, appreciate recommendations -Wound cultures pending -Continue Zosyn 4.5 g IV every 12 hours -Clear liquid diet until noon, then NPO for surgery this afternoon after 6PM Smoking 47-year history of smoking at least 1 pack/day Smoking cessation counseling provided -Nicotine patches available as needed FEN: -PO hydration -Monitor replace electrolytes as needed -Regular diet PPX: -Lovenox 40mg daily for DVT ppx -Zofran prn for nausea Pt SDW Alexander Olivo and Sahra <Ashok PATEL Andrea Begum - 09/21/18 15:11> - Attending Attestation The exam, history, and the medical decision-making described in the above note were completed with the assistance of the resident physician. I reviewed and agree with the findings presented. I attest that I had a [id number] encounter with the patient on the same day, and personally performed and documented my assessment and findings in the medical record. PAtient feeling better from pain perspective but doesnt like foot being wrapped , still draining from foot. no n/v/f/c. Foot wrapped but soaking through bandage with small bullae present in linear distribution from wrap. 1. Cellulitis of left foot. macerated, preliminary cultures show massive pseudomonal growth, will add cipro to vanc/zosyn to double cover this until we have good cultures from podiatry. They are taking to OR for debridement and deep cultures today. 2. HTN - resolved without treatment 3. thrombocytopenia- mild continue to trend. present before starting medications here in hospital 4. tobacco use- nicotine patch, he says he will quit after this hospital stay. <Keith Ramírez - 09/21/18 16:13> <Andrea Browning III - Last Filed: 09/21/18 14:52> (1) Cellulitis Qualifiers: Site of cellulitis: extremity Laterality: left <Keith Ramírez - Last Filed: 09/21/18 16:13> (1) Cellulitis Qualifiers: Site of cellulitis: extremity Laterality: left <Andrea Browning III - Last Filed: 09/21/18 14:52> (1) Cellulitis Qualifiers: Site of cellulitis: extremity Laterality: left <Keith Ramírez - Last Filed: 09/21/18 16:13> (1) Cellulitis Qualifiers: Site of cellulitis: extremity Laterality: left
--- NOTE | 2018-09-21 12:47 | ECG ---
Date Performed: 09/21/2018 Time Performed: 05:49:38 PTAGE: 58 years EKG: Sinus rhythm POSSIBLE RIGHT VENTRICULAR CONDUCTION DELAY BORDERLINE ECG NO PREVIOUS TRACING DOCTOR: Nissa Huizar Interpretating Date/Time 09/21/2018 12:45:24
[2018-09-21] MEDS: Ciprofloxacin 400 MG/200 ML 400 MG/200 ML PIGGYBACK IV.SIG SCH (17:31)
[2018-09-21] MEDS ORDERED: Bupivacaine 0.25% Inj 50 ML MDV Vial ONE (18:56)
[2018-09-21] MEDS ORDERED: fentaNYL Citrate Inj 100 MCG/2 ML Ampul ONE (19:48)
--- NOTE | 2018-09-21 19:54 | P.BOP ---
- Preoperative Diagnosis (1) Abscess of left foot including toes - Postoperative Diagnosis (1) Abscess of left foot including toes Date of procedure: 09/21/18 Procedure: Incision and drainage left foot Incision made to irrigate large bullae to plantar toes 1-5 and plantar forefoot. No deep abscess noted. No fluctuance noted. Serous drainage noted. No purulence. Deroofed bullous areas superficial and raw. Irrigation with 3L normal saline and dressing with xeroform to all forefoot and toes. 4x4, abd, cast padding, fran left foot. No tourniquet Ankle block 20mL 0.25% marcaine plain DISPOSITION Weightbearing as tolerated Await cultures Will assess Tuesday to determine if any further treatment required. Anesthesia: GETA, local (20mL 0.25% marcaine plain) Surgeon: Archie Clark DPM Analytic Programmer: staff Estimated blood loss (mL): 5 Pathology: other (1. culture left foot) Condition: stable Disposition: PACU
[2018-09-21] MEDS ORDERED: *morphine SULFATE 4 MG/ML PERIprocedure ONLY ONE (19:58)
[2018-09-21] MEDS: Enoxaparin Inj 40 MG/0.4 ML Syringe SQ SCH (23:55)
[2018-09-22] MEDS: Piperacil/Tazo 3.375 GM Premix 3.375 GM/50 ML PIGGYBACK IV.SIG SCH ×5 (00:15→23:11)
[2018-09-22] MEDS: Vancomycin Inj 1,500 MG in Sodium Chlor 0.9% Inj 500 ML IV.SIG SCH ×3 (00:16→23:40)
[2018-09-22] MEDS: Ciprofloxacin 400 MG/200 ML 400 MG/200 ML PIGGYBACK IV.SIG SCH ×2 (02:23→09:50)
[2018-09-22 07:10] LABS: Hematocrit 45.8 % (39.0-51.0); Hemoglobin 15.3 gm/dL (13.0-17.0); Mean Corpuscular HGB Conc 33.5 % (32.0-36.0); Mean Corpuscular Hemoglobin 31.7 pg (27.0-34.0); Mean Corpuscular Volume 94.7 fL (80.0-100.0); Mean Platelet Volume 8.8 fL (7.0-11.0); Platelet Count 120 th/mm3 (150-450); Red Blood Count 4.84 mil/mm3 (4.50-5.90); Red Cell Distribution Width 13.7 % (11.6-17.2); White Blood Count 9.2 th/mm3 (4.0-11.0)
[2018-09-22 07:39] LABS: Aspartate Aminotransferase 18 U/L (15-37); Calcium 7.6 mg/dL (8.5-10.1); Chloride 108 meq/L (98-107); Glomerular Filtration Rate 77 mL/min (>89); Potassium 3.7 meq/L (3.5-5.1); Sodium 139 meq/L (136-145)
[2018-09-22 07:40] LABS: Alanine Aminotransferase 19 U/L (12-78)
[2018-09-22 07:56] LABS: Albumin 2.7 g/dL (3.4-5.0); Alkaline Phosphatase 64 U/L (45-117); Anion Gap 7 meq/L (5-15); Blood Urea Nitrogen 12 mg/dL (7-18); Carbon Dioxide 23.7 meq/L (21.0-32.0); Glucose,Random 92 mg/dL (74-106); Total Protein 5.9 g/dL (6.4-8.2)
[2018-09-22] MEDS: Senna/Docusate Sodium 8.6/50 MG Tablet PO SCH ×2 (10:04→20:01)
--- NOTE | 2018-09-22 12:26 | P.PNFP ---
Subjective Interval history: NAEON. Mr Murguia went to the OR last night for left foot I&D with washout with Dr Clark. He was seen in the PACU this morning as there was no bed on the floor to send him to. He is eating, drinking, voiding and has had a BM since the procedure last night, but does have a sore throat likely 2/2 intubation for the procedure. His pain is well controlled and denies CP, SOB, N/V/D, abdominal and leg pain. <Andrea Browning III H - 09/22/18 12:25> Results - Labs Result diagrams: 09/22/18 06:02 09/22/18 06:02 <Keith Ramírez - 09/22/18 17:55> Abnormal lab results 09/22/18 09/22/18 Range/Units 06:02 06:02 Plt Count 120 L (150-450) th/mm3 Chloride 108 H (98-107) meq/L Estimated GFR 77 L (>89) mL/min Calcium 7.6 L (8.5-10.1) mg/dL Total Protein 5.9 L (6.4-8.2) g/dL Albumin 2.7 L (3.4-5.0) g/dL Short CBC 09/22/18 Range/Units 06:02 WBC 9.2 (4.0-11.0) th/mm3 Hgb 15.3 (13.0-17.0) gm/dL Hct 45.8 (39.0-51.0) % Plt Count 120 L (150-450) th/mm3 BMP 09/22/18 06:02 Sodium 139 Potassium 3.7 Chloride 108 H Carbon Dioxide 23.7 BUN 12 Creatinine 0.99 Calcium 7.6 L Liver Function 09/22/18 Range/Units 06:02 Total Bilirubin 0.2 (0.2-1.0) mg/dL AST 18 (15-37) U/L ALT 19 (12-78) U/L Alkaline Phosphatase 64 (45-117) U/L Albumin 2.7 L (3.4-5.0) g/dL <Keith Ramírez - 09/22/18 17:55> Abnormal lab results 09/22/18 09/22/18 Range/Units 06:02 06:02 Plt Count 120 L (150-450) th/mm3 Chloride 108 H (98-107) meq/L Estimated GFR 77 L (>89) mL/min Calcium 7.6 L (8.5-10.1) mg/dL Total Protein 5.9 L (6.4-8.2) g/dL Albumin 2.7 L (3.4-5.0) g/dL Short CBC 09/22/18 Range/Units 06:02 WBC 9.2 (4.0-11.0) th/mm3 Hgb 15.3 (13.0-17.0) gm/dL Hct 45.8 (39.0-51.0) % Plt Count 120 L (150-450) th/mm3 BMP 09/22/18 06:02 Sodium 139 Potassium 3.7 Chloride 108 H Carbon Dioxide 23.7 BUN 12 Creatinine 0.99 Calcium 7.6 L Liver Function 09/22/18 Range/Units 06:02 Total Bilirubin 0.2 (0.2-1.0) mg/dL AST 18 (15-37) U/L ALT 19 (12-78) U/L Alkaline Phosphatase 64 (45-117) U/L Albumin 2.7 L (3.4-5.0) g/dL <Blanke III R2,Andrea H - 09/22/18 12:25> Physical Exam Vital signs: Vital Signs 09/21/18 19:38 09/21/18 19:45 09/21/18 20:00 Temperature 97.4 F L Pulse Rate 60 57 L 57 L Respiratory Rate 16 16 13 Blood Pressure 107/63 115/69 115/69 Pulse Oximetry 95 95 97 09/21/18 20:15 09/21/18 20:30 09/21/18 20:45 Temperature 97.4 F L Pulse Rate 54 L 52 L 54 L Respiratory Rate 12 12 12 Blood Pressure 121/70 101/57 L 111/64 Pulse Oximetry 99 97 97 09/21/18 21:45 09/22/18 00:00 09/22/18 04:00 Temperature 98.7 F 98.5 F Pulse Rate 57 L 57 L 59 L Respiratory Rate 13 16 12 Blood Pressure 120/63 120/63 104/58 L Pulse Oximetry 94 L 95 92 L 09/22/18 07:30 09/22/18 10:00 01/04/19 12:00 Temperature 98.3 F 97.3 F L Pulse Rate 58 L 58 L 50 L Respiratory Rate 16 16 16 Blood Pressure 113/68 109/62 109/59 L Pulse Oximetry 95 95 97 09/22/18 16:00 Temperature 98.8 F Pulse Rate 60 Respiratory Rate 16 Blood Pressure 117/64 Pulse Oximetry 97 Intake & Output 09/21/18 09/22/18 09/22/18 18:59 06:59 18:59 Intake Total 850 / 850 2115 / 2115 250 / 250 Output Total 1255 / 1255 800 / 800 Balance 850 / 850 860 / 860 -550 / -550 Intake: IV 850 / 850 815 / 815 250 / 250 Cipro 400 MG/200 ML Inj 400 mg 200 / 200 200 / 200 200 / 200 In 200 ml @ 200 mls/hr IV.SIG Q8H LELO Rx#:[id number] Zosyn 3.375 GM Premix 3.375 gm 150 / 150 100 / 100 50 / 50 In 50 ml @ 100 mls/hr IV.SIG Q6H LELO Rx#:[id number] Vancomycin Inj 1,500 MG In NS 500 / 500 515 / 515 Inj 500 ML @ 250 mls/hr IV.SIG Q12H LELO Rx#:[id number] Oral 900 / 900 Anesthesia Amount 400 / 400 Output: Urine 1250 / 1250 800 / 800 Estimated Blood Loss 5 / 5 Other: Date of Last Bowel Movement 09/20/18 09/22/18 # Bowel Movements 1 <Keith Ramírez - 09/22/18 17:55> Vital Signs 09/21/18 15:28 09/21/18 19:38 09/21/18 19:45 Temperature 97.9 F 97.4 F L Pulse Rate 61 60 57 L Respiratory Rate 16 16 16 Blood Pressure 121/74 107/63 115/69 Pulse Oximetry 97 95 95 09/21/18 20:00 09/21/18 20:15 09/21/18 20:30 Temperature Pulse Rate 57 L 54 L 52 L Respiratory Rate 13 12 12 Blood Pressure 115/69 121/70 101/57 L Pulse Oximetry 97 99 97 09/21/18 20:45 09/21/18 21:45 09/22/18 00:00 Temperature 97.4 F L 98.7 F Pulse Rate 54 L 57 L 57 L Respiratory Rate 12 13 16 Blood Pressure 111/64 120/63 120/63 Pulse Oximetry 97 94 L 95 09/22/18 04:00 09/22/18 07:30 09/22/18 10:00 Temperature 98.5 F 98.3 F Pulse Rate 59 L 58 L 58 L Respiratory Rate 12 16 16 Blood Pressure 104/58 L 113/68 109/62 Pulse Oximetry 92 L 95 95 Intake & Output 09/21/18 09/22/18 09/22/18 18:59 06:59 18:59 Intake Total 850 / 850 2115 / 2115 Output Total 1255 / 1255 800 / 800 Balance 850 / 850 860 / 860 -800 / -800 Intake: IV 850 / 850 815 / 815 Cipro 400 MG/200 ML Inj 400 mg 200 / 200 200 / 200 In 200 ml @ 200 mls/hr IV.SIG Q8H LELO Rx#:[id number] Zosyn 3.375 GM Premix 3.375 gm 150 / 150 100 / 100 In 50 ml @ 100 mls/hr IV.SIG Q6H LELO Rx#:[id number] Vancomycin Inj 1,500 MG In NS 500 / 500 515 / 515 Inj 500 ML @ 250 mls/hr IV.SIG Q12H LELO Rx#:[id number] Oral 900 / 900 Anesthesia Amount 400 / 400 Output: Urine 1250 / 1250 800 / 800 Estimated Blood Loss 5 / 5 Other: Date of Last Bowel Movement 09/20/18 09/22/18 # Bowel Movements 1 <Blanke III R2Andrea - 09/22/18 12:25> Narrative: GENERAL: 58 YO male with [employer] ballcap on, lying in bed in [place]. SKIN: Warm and dry. No rash or lesion. HEAD: Normocephalic. Atraumatic. MMM. EYES: No scleral icterus. No injection or drainage. EOMI/PERRLA. NECK: Supple, trachea midline. No JVD or lymphadenopathy. CARDIOVASCULAR: Regular rate and rhythm without murmurs, gallops, or rubs. RESPIRATORY: Breath sounds equal bilaterally. No accessory muscle use. GASTROINTESTINAL: Abdomen soft, non-tender, nondistended. BS+ MUSCULOSKELETAL: No cyanosis, or edema. Left foot wrapped in Alon bandage that is c/d/i with post-op shoe in place. He can wiggle his left foot toes and does not complain of numbness. BACK: Nontender without obvious deformity. No CVA tenderness. <Ashok III Andrea Begum - 09/22/18 12:25> Assessment and Plan - Assessment (1) Cellulitis Code(s): L03.90 - Cellulitis, unspecified Status: Acute (2) Left foot infection Code(s): L08.9 - Local infection of the skin and subcutaneous tissue, unspecified Status: Acute (3) Smoking addiction Code(s): F17.200 - Nicotine dependence, unspecified, uncomplicated Status: Acute (4) Nutrition, metabolism, and development symptoms Code(s): R63.8 - Other symptoms and signs concerning food and fluid intake Status: Acute (5) DVT prophylaxis Status: Acute <DesireeKeith Anne - 09/22/18 17:55> (1) Cellulitis Code(s): L03.90 - Cellulitis, unspecified Status: Acute (2) Left foot infection Code(s): L08.9 - Local infection of the skin and subcutaneous tissue, unspecified Status: Acute (3) Smoking addiction Code(s): F17.200 - Nicotine dependence, unspecified, uncomplicated Status: Acute (4) Nutrition, metabolism, and development symptoms Code(s): R63.8 - Other symptoms and signs concerning food and fluid intake Status: Acute (5) DVT prophylaxis Status: Acute <Andrea Browning III - 09/22/18 12:13> - Assessment and Plan 58-year-old male, with no PMH, admitted to the hospital due to left foot infection of one month duration, worsening in the last 2 days. Differential diagnoses include but not limited to cellulitis, osteomyelitis, necrosis of the toes. Infection of the left foot/cellulitis - POD#1 after I&D with Dr Clark, podiatry S/p 4.5 g of Zosyn IV once and vancomycin 1 g IV once X-ray with chronic changes and not fracture -Consult to podiatry, appreciate recommendations -Wound cultures from 1/2 growing Staph aureus, Pseudomonas a., and Enterococcus faecalis--bolden sensitive -Tissue cultures from surgery -CBC wnl except for Plts 120 and stable; monitor plts -Zosyn 4.5g IV q12h -Vancomycin 1.5g IV q12h -Ciprofloxacin 400mg IV q8h -Gallitzin 5/325mg q6h PRN -Blood cx NGTD x2 days Smoking 47-year history of smoking at least 1 pack/day Smoking cessation counseling provided -Nicotine patches available as needed FEN: -PO hydration -Monitor replace electrolytes as needed -Regular diet PPX: -Lovenox 40mg daily for DVT ppx -Zofran prn for nausea Dispo: Likely 1-2 days while awaiting cultures, clearance to discharge by Podiatry and switch to PO antibiotics Pt SDW Drs. Ramírez and Sahra <Andrea Browning III - 09/22/18 12:25> - Attending Attestation The exam, history, and the medical decision-making described in the above note were completed with the assistance of the resident physician. I reviewed and agree with the findings presented. I attest that I had a [id number] encounter with the patient on the same day, and personally performed and documented my assessment and findings in the medical record. Seen in PACU today, still no f/c/n/v/d. Foot well wrapped with less drainage than yesterday at time of visit. c/o sore throat. Will continue current abx until results from operative culture available initial wound cultures suggest adequate coverage. <Keith Ramírez - 09/22/18 17:55> <Andrea Browning III - Last Filed: 09/22/18 12:13> (1) Cellulitis Qualifiers: Site of cellulitis: extremity Laterality: left <Keith Ramírez - Last Filed: 09/22/18 17:55> (1) Cellulitis Qualifiers: Site of cellulitis: extremity Laterality: left <Andrea Browning III - Last Filed: 09/22/18 12:13> (1) Cellulitis Qualifiers: Site of cellulitis: extremity Laterality: left <Keith Ramírez - Last Filed: 09/22/18 17:55> (1) Cellulitis Qualifiers: Site of cellulitis: extremity Laterality: left
[2018-09-22] MEDS: Enoxaparin Inj 40 MG/0.4 ML Syringe SQ SCH (19:58)
[2018-09-23] MEDS: Ciprofloxacin 400 MG/200 ML 400 MG/200 ML PIGGYBACK IV.SIG SCH ×4 (01:51→17:09)
[2018-09-23 05:07] LABS: Hematocrit 45.5 % (39.0-51.0); Hemoglobin 15.4 gm/dL (13.0-17.0); Mean Corpuscular HGB Conc 33.9 % (32.0-36.0); Mean Corpuscular Hemoglobin 32.1 pg (27.0-34.0); Mean Corpuscular Volume 94.8 fL (80.0-100.0); Mean Platelet Volume 8.9 fL (7.0-11.0); Platelet Count 124 th/mm3 (150-450); Red Cell Distribution Width 13.7 % (11.6-17.2); White Blood Count 6.4 th/mm3 (4.0-11.0)
[2018-09-23 05:13] LABS: Calcium 7.3 mg/dL (8.5-10.1); Carbon Dioxide 27.2 meq/L (21.0-32.0)
[2018-09-23 05:25] LABS: Calcium-Albumin Corrected 8.1 mg/dL (8.5-10.1)
[2018-09-23] MEDS: Piperacil/Tazo 3.375 GM Premix 3.375 GM/50 ML PIGGYBACK IV.SIG SCH ×2 (06:51→11:27)
[2018-09-23] MEDS: Senna/Docusate Sodium 8.6/50 MG Tablet PO SCH ×2 (08:49→20:41)
[2018-09-23] MEDS: Vancomycin Inj 1,500 MG in Sodium Chlor 0.9% Inj 500 ML IV.SIG SCH ×2 (11:40→23:37)
[2018-09-23] MEDS ORDERED: Pharmacy Ordered Lab Info OTHER ONE (11:45)
--- NOTE | 2018-09-23 12:25 | P.PNFP ---
Subjective Interval history: Patient doing well this morning, pain is well controlled. He would like to know when he can go home. Extensive discussion had with patient regarding infection of his foot as well as the bacteria growing on it. Patient understands he will have to go home and at least 2 antibiotics, we are waiting for future cultures and sensitivities to determine which regimen to send him home up. Patient denies any chest pain, shortness of breath, no nausea or vomiting, ambulating well. No fevers or chills <Sahra Clarke Liana Lopez V - 09/23/18 12:25> Results - Labs Result diagrams: 09/23/18 03:36 09/23/18 03:36 <Keith Ramírez - 09/23/18 14:50> Abnormal lab results 09/23/18 09/23/18 09/23/18 Range/Units 03:36 03:36 11:45 Plt Count 124 L (150-450) th/mm3 Chloride 110 H (98-107) meq/L Estimated GFR 66 L (>89) mL/min Calcium 7.3 L* (8.5-10.1) mg/dL Calcium Adj for Albumin 8.1 L (8.5-10.1) mg/dL Albumin 3.0 L (3.4-5.0) g/dL Vancomycin Trough 13.1 H (5.0-10.0) mcg/mL Short CBC 09/23/18 Range/Units 03:36 WBC 6.4 (4.0-11.0) th/mm3 Hgb 15.4 (13.0-17.0) gm/dL Hct 45.5 (39.0-51.0) % Plt Count 124 L (150-450) th/mm3 BMP 09/23/18 03:36 Sodium 143 Potassium 4.0 Chloride 110 H Carbon Dioxide 27.2 BUN 10 Creatinine 1.13 Calcium 7.3 L* Liver Function 09/23/18 Range/Units 03:36 Albumin 3.0 L (3.4-5.0) g/dL <Keith Ramírez - 09/23/18 14:50> Abnormal lab results 09/23/18 09/23/18 Range/Units 03:36 03:36 Plt Count 124 L (150-450) th/mm3 Chloride 110 H (98-107) meq/L Estimated GFR 66 L (>89) mL/min Calcium 7.3 L* (8.5-10.1) mg/dL Calcium Adj for Albumin 8.1 L (8.5-10.1) mg/dL Albumin 3.0 L (3.4-5.0) g/dL Short CBC 09/23/18 Range/Units 03:36 WBC 6.4 (4.0-11.0) th/mm3 Hgb 15.4 (13.0-17.0) gm/dL Hct 45.5 (39.0-51.0) % Plt Count 124 L (150-450) th/mm3 BMP 09/23/18 03:36 Sodium 143 Potassium 4.0 Chloride 110 H Carbon Dioxide 27.2 BUN 10 Creatinine 1.13 Calcium 7.3 L* Liver Function 09/23/18 Range/Units 03:36 Albumin 3.0 L (3.4-5.0) g/dL <Sahra Clarke R1,Carolyn - 09/23/18 12:25> Physical Exam Vital signs: Vital Signs 09/22/18 16:00 09/22/18 19:51 09/22/18 23:54 Temperature 98.8 F 97.7 F 97.9 F Pulse Rate 60 61 56 L Respiratory Rate 16 19 20 Blood Pressure 117/64 115/59 L 113/58 L Pulse Oximetry 97 96 95 09/23/18 08:00 09/23/18 12:00 Temperature 97.5 F L 97.7 F Pulse Rate 83 55 L Respiratory Rate 19 16 Blood Pressure 161/74 H 109/58 L Pulse Oximetry 96 98 Intake & Output 09/22/18 09/23/18 09/23/18 18:59 06:59 18:59 Intake Total 765 / 765 1265 / 1265 300 / 300 Output Total 800 / 800 Balance -35 / -35 1265 / 1265 300 / 300 Weight 89.2 kg Intake: IV 765 / 765 765 / 765 300 / 300 Cipro 400 MG/200 ML Inj 400 mg 200 / 200 200 / 200 200 / 200 In 200 ml @ 200 mls/hr IV.SIG Q8H [facility] Rx#:[id number] Zosyn 3.375 GM Premix 3.375 gm 50 / 50 50 / 50 100 / 100 In 50 ml @ 100 mls/hr IV.SIG Q6H [facility] Rx#:[id number] Vancomycin Inj 1,500 MG In NS 515 / 515 515 / 515 Inj 500 ML @ 250 mls/hr IV.SIG Q12H [facility] Rx#:[id number] Oral 500 / 500 Output: Urine 800 / 800 Other: # Voids 4 Date of Last Bowel Movement 09/22/18 # Bowel Movements 1 <Keith Ramírez K - 09/23/18 14:50> Vital Signs 09/22/18 16:00 09/22/18 19:51 09/22/18 23:54 Temperature 98.8 F 97.7 F 97.9 F Pulse Rate 60 61 56 L Respiratory Rate 16 19 20 Blood Pressure 117/64 115/59 L 113/58 L Pulse Oximetry 97 96 95 09/23/18 08:00 Temperature 97.5 F L Pulse Rate 83 Respiratory Rate 19 Blood Pressure 161/74 H Pulse Oximetry 96 Intake & Output 09/22/18 09/23/18 09/23/18 18:59 06:59 18:59 Intake Total 765 / 765 1265 / 1265 250 / 250 Output Total 800 / 800 Balance -35 / -35 1265 / 1265 250 / 250 Weight 89.2 kg Intake: IV 765 / 765 765 / 765 250 / 250 Cipro 400 MG/200 ML Inj 400 mg 200 / 200 200 / 200 200 / 200 In 200 ml @ 200 mls/hr IV.SIG Q8H [facility] Rx#:[id number] Zosyn 3.375 GM Premix 3.375 gm 50 / 50 50 / 50 50 / 50 In 50 ml @ 100 mls/hr IV.SIG Q6H [facility] Rx#:[id number] Vancomycin Inj 1,500 MG In NS 515 / 515 515 / 515 Inj 500 ML @ 250 mls/hr IV.SIG Q12H [facility] Rx#:[id number] Oral 500 / 500 Output: Urine 800 / 800 Other: # Voids 4 Date of Last Bowel Movement 09/22/18 # Bowel Movements 1 <Liana Horowitz V - 09/23/18 12:25> Narrative: GENERAL: 58 YO male with [employer] ballcap on, lying in bed in NAD. SKIN: Warm and dry. No rash or lesion. CARDIOVASCULAR: Regular rate and rhythm without murmurs, gallops, or rubs. RESPIRATORY: Breath sounds equal bilaterally. No accessory muscle use. GASTROINTESTINAL: Abdomen soft, non-tender, nondistended. BS+ MUSCULOSKELETAL: No cyanosis, or edema. Left foot wrapped in Alon bandage that shows minimal bleeding on the inside. He can wiggle his left foot toes and does not complain of numbness. <Liana Horowitz V - 09/23/18 12:25> Assessment and Plan - Assessment (1) Cellulitis Code(s): L03.90 - Cellulitis, unspecified Status: Acute (2) Left foot infection Code(s): L08.9 - Local infection of the skin and subcutaneous tissue, unspecified Status: Acute (3) Smoking addiction Code(s): F17.200 - Nicotine dependence, unspecified, uncomplicated Status: Acute (4) Nutrition, metabolism, and development symptoms Code(s): R63.8 - Other symptoms and signs concerning food and fluid intake Status: Acute (5) DVT prophylaxis Status: Acute <Keith Ramírez - 09/23/18 14:50> (1) Cellulitis Code(s): L03.90 - Cellulitis, unspecified Status: Acute (2) Left foot infection Code(s): L08.9 - Local infection of the skin and subcutaneous tissue, unspecified Status: Acute (3) Smoking addiction Code(s): F17.200 - Nicotine dependence, unspecified, uncomplicated Status: Acute (4) Nutrition, metabolism, and development symptoms Code(s): R63.8 - Other symptoms and signs concerning food and fluid intake Status: Acute (5) DVT prophylaxis Status: Acute <Liana Horowitz V - 09/23/18 12:16> - Assessment and Plan 58-year-old male, with no PMH, admitted to the hospital due to left foot infection of one month duration, worsening in the last 2 days. Differential diagnoses include but not limited to cellulitis, osteomyelitis, necrosis of the toes. Infection of the left foot/cellulitis - POD#3 after I&D with Dr Clark, podiatry S/p 4.5 g of Zosyn IV once and vancomycin 1 g IV once X-ray with chronic changes and not fracture -Consult to podiatry, appreciate recommendations -Wound cultures growing Staph aureus, Pseudomonas a., and Enterococcus faecalis --bolden sensitive -Tissue cultures from surgery also growing same bacteria plus strep. sensitives pending -CBC wnl except for Plts 124 and stable; monitor plts -Zosyn 4.5g IV q12h -Vancomycin 1.5g IV q12h -Ciprofloxacin 400mg IV q8h -[place] 5/325mg q6h PRN -Blood cx NGTD x3 days Smoking 47-year history of smoking at least 1 pack/day Smoking cessation counseling provided -Nicotine patches available as needed FEN: -PO hydration -Monitor replace electrolytes as needed -Regular diet PPX: -Lovenox 40mg daily for DVT ppx -Zofran prn for nausea Dispo: Likely 1-2 days while awaiting cultures, clearance to discharge by Podiatry and switch to PO antibiotics Pt SDW Drs. Ramírez <Liana Horowitz V - 09/23/18 12:25> - Attending Attestation The exam, history, and the medical decision-making described in the above note were completed with the assistance of the resident physician. I reviewed and agree with the findings presented. I attest that I had a [id number] encounter with the patient on the same day, and personally performed and documented my assessment and findings in the medical record. Still not desiring pain control. no f/c/n/v/d. Foot well wrapped without cellulitis extending beyond bandage. no edema. normally takes aspirin at home. deep culture showing same bacteria as original culture with possible additional strep species. can de-escalate to single coverage for pseudomonas and coordinate transition of abx with podiatry once they have decided if further debridement/surgical intervention needed. If no suspected joint or bone involvement (none on MRI) could potentially discharge on 2 wks of quinolone + abx that covers all staph and strep based on final s/s. <Keith Ramírez - 09/23/18 14:50> <Liana Horowitz Filed: 09/23/18 12:16> (1) Cellulitis Qualifiers: Site of cellulitis: extremity Laterality: left <ToroskyedanielleKeith Poon Filed: 09/23/18 14:50> (1) Cellulitis Qualifiers: Site of cellulitis: extremity Laterality: left <Sahra Gorealma delia LopezLiana Poon Filed: 09/23/18 12:16> (1) Cellulitis Qualifiers: Site of cellulitis: extremity Laterality: left <TororossKeith Poon Filed: 09/23/18 14:50> (1) Cellulitis Qualifiers: Site of cellulitis: extremity Laterality: left
[2018-09-23] MEDS: Aspirin 325 MG Tablet PO SCH (13:19)
[2018-09-24] MEDS: Ciprofloxacin 400 MG/200 ML 400 MG/200 ML PIGGYBACK IV.SIG SCH (02:14)
[2018-09-24 04:49] LABS: Baso # (Auto) 0.1 th/mm3 (0.0-0.2); Baso % (Auto) 0.8 % (0.0-2.0); Eos # (Auto) 0.5 th/mm3 (0.0-0.4); Eos % (Auto) 7.3 % (0.0-4.0); Hematocrit 49.7 % (39.0-51.0); Hemoglobin 16.4 gm/dL (13.0-17.0); Lymph # (Auto) 1.7 th/mm3 (1.0-4.8); Lymph % (Auto) 23.6 % (9.0-44.0); Mean Corpuscular Hemoglobin 31.5 pg (27.0-34.0); Mean Corpuscular Volume 95.3 fL (80.0-100.0); Mean Platelet Volume 8.6 fL (7.0-11.0); Mono # (Auto) 0.6 th/mm3 (0.0-0.9); Neut # (Auto) 4.4 th/mm3 (1.8-7.7); Neut % (Auto) 60.3 % (16.0-70.0); Platelet Count 130 th/mm3 (150-450); Red Blood Count 5.22 mil/mm3 (4.50-5.90); Red Cell Distribution Width 13.6 % (11.6-17.2); White Blood Count 7.3 th/mm3 (4.0-11.0)
[2018-09-24 05:12] LABS: Calcium 8.2 mg/dL (8.5-10.1); Potassium 3.9 meq/L (3.5-5.1)
[2018-09-24] MEDS: Aspirin 325 MG Tablet PO SCH (09:35)
[2018-09-24] MEDS: Senna/Docusate Sodium 8.6/50 MG Tablet PO SCH ×2 (09:36→21:49)
--- NOTE | 2018-09-24 09:43 | P.PNFP ---
Subjective Interval history: Patient seen and examined this morning. He states that he is doing well. Ready to be discharged home if cleared. No fever/chills, no CP, no SOB, no lightheadedness/dizziness, pain is well-controlled. <Indira BegumCary Maty - 09/24/18 12:06> Results - Labs Result diagrams: 09/24/18 04:14 09/24/18 04:14 <Keith Ramírez - 09/24/18 19:25> Abnormal lab results 09/24/18 09/24/18 Range/Units 04:14 04:14 Plt Count 130 L (150-450) th/mm3 Eos % (Auto) 7.3 H (0.0-4.0) % Eos # (Auto) 0.5 H (0.0-0.4) th/mm3 Chloride 110 H (98-107) meq/L Estimated GFR 77 L (>89) mL/min Calcium 8.2 L D (8.5-10.1) mg/dL Short CBC 09/24/18 Range/Units 04:14 WBC 7.3 (4.0-11.0) th/mm3 Hgb 16.4 (13.0-17.0) gm/dL Hct 49.7 (39.0-51.0) % Plt Count 130 L (150-450) th/mm3 BMP 09/24/18 04:14 Sodium 142 Potassium 3.9 Chloride 110 H Carbon Dioxide 26.0 BUN 9 Creatinine 0.99 Calcium 8.2 L D <Keith Ramírez - 09/24/18 19:25> Abnormal lab results 09/23/18 09/24/18 09/24/18 Range/Units 11:45 04:14 04:14 Plt Count 130 L (150-450) th/mm3 Eos % (Auto) 7.3 H (0.0-4.0) % Eos # (Auto) 0.5 H (0.0-0.4) th/mm3 Chloride 110 H (98-107) meq/L Estimated GFR 77 L (>89) mL/min Calcium 8.2 L D (8.5-10.1) mg/dL Vancomycin Trough 13.1 H (5.0-10.0) mcg/mL Short CBC 09/24/18 Range/Units 04:14 WBC 7.3 (4.0-11.0) th/mm3 Hgb 16.4 (13.0-17.0) gm/dL Hct 49.7 (39.0-51.0) % Plt Count 130 L (150-450) th/mm3 BMP 09/24/18 04:14 Sodium 142 Potassium 3.9 Chloride 110 H Carbon Dioxide 26.0 BUN 9 Creatinine 0.99 Calcium 8.2 L D <Indira Cary Begum G - 09/24/18 09:43> Physical Exam Vital signs: Vital Signs 09/23/18 20:00 09/24/18 00:00 09/24/18 08:00 Temperature 98 F 97.8 F 97.5 F L Pulse Rate 65 56 L 60 Respiratory Rate 18 18 17 Blood Pressure 119/68 127/73 134/68 Pulse Oximetry 97 97 95 09/24/18 12:00 09/24/18 16:00 Temperature 97.9 F 98.0 F Pulse Rate 57 L 65 Respiratory Rate 18 18 Blood Pressure 127/69 122/65 Pulse Oximetry 95 95 Intake & Output 09/24/18 09/24/18 09/25/18 06:59 18:59 06:59 Intake Total 715 / 715 Balance 715 / 715 Weight 89.1 kg Intake: IV 715 / 715 Cipro 400 MG/200 ML Inj 400 mg 200 / 200 In 200 ml @ 200 mls/hr IV.SIG Q8H [facility] Rx#:[id number] Vancomycin Inj 1,500 MG In NS 515 / 515 Inj 500 ML @ 250 mls/hr IV.SIG Q12H [facility] Rx#:[id number] Other: # Voids 4 Date of Last Bowel Movement 09/22/18 <Keith Ramírez - 09/24/18 19:25> Vital Signs 09/23/18 12:00 09/23/18 16:00 09/23/18 20:00 Temperature 97.7 F 98.0 F 98 F Pulse Rate 55 L 56 L 65 Respiratory Rate 16 17 18 Blood Pressure 109/58 L 135/71 119/68 Pulse Oximetry 98 98 97 09/24/18 00:00 09/24/18 08:00 Temperature 97.8 F 97.5 F L Pulse Rate 56 L 60 Respiratory Rate 18 17 Blood Pressure 127/73 134/68 Pulse Oximetry 97 95 Intake & Output 09/23/18 09/24/18 09/24/18 18:59 06:59 18:59 Intake Total 1715 / 1715 715 / 715 Balance 1715 / 1715 715 / 715 Weight 89.1 kg Intake: IV 1015 / 1015 715 / 715 Cipro 400 MG/200 ML Inj 400 mg 400 / 400 200 / 200 In 200 ml @ 200 mls/hr IV.SIG Q8H [facility] Rx#:[id number] Zosyn 3.375 GM Premix 3.375 gm 100 / 100 In 50 ml @ 100 mls/hr IV.SIG Q6H [facility] Rx#:[id number] Vancomycin Inj 1,500 MG In NS 515 / 515 515 / 515 Inj 500 ML @ 250 mls/hr IV.SIG Q12H [facility] Rx#:[id number] Oral 700 / 700 Other: # Voids 6 4 <Cary Caceres - 09/24/18 09:43> Narrative: GENERAL: 58 YO male with [employer] ballcap on, lying in bed in NAD. SKIN: Warm and dry. No rash or lesion. CARDIOVASCULAR: Regular rate and rhythm without murmurs, gallops, or rubs. RESPIRATORY: Breath sounds equal bilaterally. No accessory muscle use. GASTROINTESTINAL: Abdomen soft, non-tender, nondistended. BS+ MUSCULOSKELETAL: No cyanosis, or edema. Left foot wrapped in Alon bandage that is CDI. Can wiggle his left foot toes. No numbness. <Cary Caceres - 09/24/18 12:06> Assessment and Plan - Assessment (1) Cellulitis Code(s): L03.90 - Cellulitis, unspecified Status: Acute (2) Left foot infection Code(s): L08.9 - Local infection of the skin and subcutaneous tissue, unspecified Status: Acute (3) Smoking addiction Code(s): F17.200 - Nicotine dependence, unspecified, uncomplicated Status: Acute (4) Nutrition, metabolism, and development symptoms Code(s): R63.8 - Other symptoms and signs concerning food and fluid intake Status: Acute (5) DVT prophylaxis Status: Acute <Keith Ramírez - 09/24/18 19:25> (1) Cellulitis Code(s): L03.90 - Cellulitis, unspecified Status: Acute (2) Left foot infection Code(s): L08.9 - Local infection of the skin and subcutaneous tissue, unspecified Status: Acute (3) Smoking addiction Code(s): F17.200 - Nicotine dependence, unspecified, uncomplicated Status: Acute (4) Nutrition, metabolism, and development symptoms Code(s): R63.8 - Other symptoms and signs concerning food and fluid intake Status: Acute (5) DVT prophylaxis Status: Acute <Cary Caceres - 09/24/18 12:06> - Assessment and Plan 58-year-old male, with no PMH, admitted to the hospital due to left foot infection of one month duration, worsening in the last 2 days. Differential diagnoses include but not limited to cellulitis, osteomyelitis, necrosis of the toes. Infection of the left foot/cellulitis - POD#4 after I&D with Dr Clark, podiatry S/p 4.5 g of Zosyn IV once and vancomycin 1 g IV once X-ray with chronic changes and not fracture -Consult to podiatry, appreciate recommendations -Wound cultures growing Staph aureus, Pseudomonas a., and Enterococcus faecalis --bolden sensitive -Tissue cultures from surgery also growing same bacteria plus strep.-- bolden sensitive -Zosyn 4.5g IV q12h, d/c'd today -Vancomycin 1.5g IV q12h, d/c'd today -Ciprofloxacin 400mg IV q8h, d/c'd today -Start levofloxacin 500mg po qD (6- ) -Start amoxicillin 500mg po q8h (6- ) -[place] 5/325mg q6h PRN -Blood cx NGTD x4 days Smoking 47-year history of smoking at least 1 pack/day Smoking cessation counseling provided -Nicotine patches available as needed FEN: -PO hydration -Monitor replace electrolytes as needed -Regular diet PPX: -Lovenox 40mg daily for DVT ppx -Zofran prn for nausea Dispo: Home upon clearance by Podiatry Pt SDW Drs. Graham and Desiree <Cary Caceres - 09/24/18 12:07> - Attending Attestation The exam, history, and the medical decision-making described in the above note were completed with the assistance of the resident physician. I reviewed and agree with the findings presented. I attest that I had a [id number] encounter with the patient on the same day, and personally performed and documented my assessment and findings in the medical record. patient feels about the same, still well. foot re wrapped well today. tissue cultures resulted, congruent with initial cultures. Changed to PO antibiotics, daily dressing changes, and adding oral antifungal and consulting vascular surgery per podiatry. expect 14d abx if no other indication for extended duration arises. <Keith Ramírez - 09/24/18 19:25> <Cary Caceres G - Last Filed: 09/24/18 12:06> (1) Cellulitis Qualifiers: Site of cellulitis: extremity Laterality: left <Keith Ramírez - Last Filed: 09/24/18 19:25> (1) Cellulitis Qualifiers: Site of cellulitis: extremity Laterality: left <Cary Caceres - Last Filed: 09/24/18 12:06> (1) Cellulitis Qualifiers: Site of cellulitis: extremity Laterality: left <Keith Ramírez - Last Filed: 09/24/18 19:25> (1) Cellulitis Qualifiers: Site of cellulitis: extremity Laterality: left
--- NOTE | 2018-09-24 15:12 | P.PNPOD ---
Subjective Interval history: DOS with Dr Campo Left foot I and D Physical Exam Vital signs: Vital Signs 09/23/18 16:00 09/23/18 20:00 09/24/18 00:00 Temperature 98.0 F 98 F 97.8 F Pulse Rate 56 L 65 56 L Respiratory Rate 17 18 18 Blood Pressure 135/71 119/68 127/73 Pulse Oximetry 98 97 97 09/24/18 08:00 09/24/18 12:00 Temperature 97.5 F L 97.9 F Pulse Rate 60 57 L Respiratory Rate 17 18 Blood Pressure 134/68 127/69 Pulse Oximetry 95 95 Intake & Output 09/23/18 09/24/18 09/24/18 18:59 06:59 18:59 Intake Total 1715 / 1715 715 / 715 Balance 1715 / 1715 715 / 715 Weight 89.1 kg Intake: IV 1015 / 1015 715 / 715 Cipro 400 MG/200 ML Inj 400 mg 400 / 400 200 / 200 In 200 ml @ 200 mls/hr IV.SIG Q8H [facility] Rx#:[id number] Zosyn 3.375 GM Premix 3.375 gm 100 / 100 In 50 ml @ 100 mls/hr IV.SIG Q6H [facility] Rx#:[id number] Vancomycin Inj 1,500 MG In NS 515 / 515 515 / 515 Inj 500 ML @ 250 mls/hr IV.SIG Q12H [facility] Rx#:[id number] Oral 700 / 700 Other: # Voids 6 4 Date of Last Bowel Movement 09/22/18 Narrative: LLE no drainage, + erythema and edema, no streaking. DP palpable and PT non palpable. Medications and Allergies Active Medications: Active Medications Acetaminophen (Tylenol) 650 mg PO Q4H PRN PRN Reason: Temp > 100.4 Hydrocodone Bitart/Acetaminophen ([place] 5/325) 1 tab PO Q6H PRN PRN Reason: PAIN SCALE 1 TO 10 Last Admin: 09/22/18 19:58 Dose: 1 tab Amoxicillin (Amoxil) 500 mg PO TID [facility] Last Admin: 09/24/18 13:09 Dose: Not Given Aspirin (Aspirin) 325 mg PO DAILY [facility] Last Admin: 09/24/18 09:35 Dose: 325 mg Ibuprofen (Motrin) 400 mg PO Q6HR PRN PRN Reason: PAIN 1-10 Last Admin: 09/22/18 10:00 Dose: 400 mg Lactobacillus Acidophilus (Lactinex Pkt) 1 gm PO TID [facility] Last Admin: 09/24/18 13:09 Dose: Not Given Levofloxacin (Levaquin) 500 mg PO DAILY [facility] Naloxone HCl (Narcan Inj) 0.4 mg IV.PUSH UNSCH PRN PRN Reason: SEE LABEL COMMENTS Nicotine (Habitrol 14 Mg Patch.24 Hr) 1 patch T-DERMAL DAILY PRN PRN Reason: craving Patch Removal (Remove Old Patch) 1 each T-DERMAL HS [facility] Last Admin: 09/23/18 20:40 Dose: Not Given Senna/Docusate Sodium (Evie-Colace) 1 tab PO BID [facility] Last Admin: 09/24/18 09:36 Dose: Not Given Sodium Chloride (Ns Flush) 2 ml IV.FLUSH BID [facility] Last Admin: 09/24/18 09:36 Dose: 2 ml Sodium Chloride (Ns Flush) 2 ml IV.FLUSH PRN PRN PRN Reason: FLUSH AFTER USING IV ACCESS Allergies Allergy/AdvReac Type Severity Reaction Status Date / Time No Known Allergies Allergy Verified 09/20/18 12:13 Home Medications Medication Instructions Recorded Confirmed Type No Known Home Medications 09/20/18 09/20/18 History Results - Labs CBC & Chem 7: 09/24/18 04:14 09/24/18 04:14 Laboratory Results - last 24 hr 09/24/18 09/24/18 04:14 04:14 WBC 7.3 RBC 5.22 Hgb 16.4 Hct 49.7 MCV 95.3 MCH 31.5 MCHC 33.0 RDW 13.6 Plt Count 130 L MPV 8.6 Neut % (Auto) 60.3 Lymph % (Auto) 23.6 [place] % (Auto) 8.0 Eos % (Auto) 7.3 H Baso % (Auto) 0.8 Neut # (Auto) 4.4 Lymph # (Auto) 1.7 [place] # (Auto) 0.6 Eos # (Auto) 0.5 H Baso # (Auto) 0.1 WBC Differential . Differential Comment Auto diff final Sodium 142 Potassium 3.9 Chloride 110 H Carbon Dioxide 26.0 Anion Gap 6 BUN 9 Creatinine 0.99 Estimated GFR 77 L Random Glucose 100 Calcium 8.2 L D Microbiology 09/20/18 15:30 Blood - Peripheral Aerobic Blood Culture - Preliminary No growth in 4 days 09/20/18 15:30 Blood - Peripheral Anaerobic Blood Culture - Preliminary No growth in 4 days 09/20/18 15:35 Blood - Peripheral Aerobic Blood Culture - Preliminary No growth in 4 days 09/20/18 15:35 Blood - Peripheral Anaerobic Blood Culture - Preliminary No growth in 4 days 09/21/18 19:16 Tissue - Foot Gram Stain - Final 09/21/18 19:16 Tissue - Foot Wound Culture - Final Staphylococcus aureus Pseudomonas aeruginosa Enterococcus faecalis Enterococcus species 09/21/18 19:16 Tissue - Foot Fungal Smear - Final No fungal elements seen 09/21/18 19:16 Tissue - Foot Acid Fast Bacilli Smear - Final No acid fast bacilli seen Assessment and Plan - Assessment (1) Abscess of left foot including toes Code(s): L02.612 - Cutaneous abscess of left foot Status: Acute (2) Cellulitis Code(s): L03.90 - Cellulitis, unspecified Status: Acute (3) Left foot infection Code(s): L08.9 - Local infection of the skin and subcutaneous tissue, unspecified Status: Acute - Plan Patient will need daily dressing changes with xeroform and DSD, left foot. Patient will need home health care for daily dressing changes. Recommend Vascular Consult and adding an oral antifungal. Will plan to d/c on 09/26/18 once cleared by Vascular. Patient should f/u with Dr Wooten with in 1 week of d/c (2) Cellulitis Qualifiers: Site of cellulitis: extremity Laterality: left
[2018-09-24] MEDS: Amoxicillin/Clavulanate 875/125 MG Tablet PO SCH (20:36)
[2018-09-24] MEDS ORDERED: levoFLOXacin 500 MG Tablet PO SCH (21:00)
[2018-09-25 06:02] LABS: Calcium 8.4 mg/dL (8.5-10.1); Carbon Dioxide 23.9 meq/L (21.0-32.0); Potassium 4.1 meq/L (3.5-5.1)
[2018-09-25] MEDS: levoFLOXacin 750 MG Tablet PO SCH (09:50)
[2018-09-25] MEDS: Amoxicillin/Clavulanate 875/125 MG Tablet PO SCH ×2 (09:50→20:38)
[2018-09-25] MEDS: Aspirin 325 MG Tablet PO SCH (09:51)
[2018-09-25] MEDS: Senna/Docusate Sodium 8.6/50 MG Tablet PO SCH ×2 (09:52→20:38)
--- NOTE | 2018-09-25 11:32 | P.PNFP ---
Subjective Interval history: Mr Murguia was seen on rounds this morning. He reports no acute events overnight. He does report increased itching, swelling and redness of his hands. He reports that he has been using a lotion given to him by the hospital which he does not use on outpatient. 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 No history of eczema or atopic disease. He denies any nausea, vomiting, fevers, chills, abdominal pain, diarrhea, dysuria, headaches. <Jeanne Garcia - 09/25/18 11:32> Results - Labs Result diagrams: 09/24/18 04:14 09/25/18 05:14 <Keith Ramírez - 09/25/18 13:58> Abnormal lab results 09/25/18 Range/Units 05:14 Estimated GFR 75 L (>89) mL/min Calcium 8.4 L (8.5-10.1) mg/dL [facility] 09/25/18 05:14 Sodium 138 Potassium 4.1 Chloride 107 Carbon Dioxide 23.9 BUN 12 Creatinine 1.02 Calcium 8.4 L <Keith Ramírez - 09/25/18 13:58> Abnormal lab results 09/25/18 Range/Units 05:14 Estimated GFR 75 L (>89) mL/min Calcium 8.4 L (8.5-10.1) mg/dL [facility] 09/25/18 05:14 Sodium 138 Potassium 4.1 Chloride 107 Carbon Dioxide 23.9 BUN 12 Creatinine 1.02 Calcium 8.4 L <Jeanne Garcia - 09/25/18 11:32> Physical Exam Vital signs: Vital Signs 09/24/18 16:00 09/24/18 20:00 09/25/18 00:00 Temperature 98.0 F 98.0 F 98.1 F Pulse Rate 65 69 64 Respiratory Rate 18 18 18 Blood Pressure 122/65 135/71 126/65 Pulse Oximetry 95 96 95 09/25/18 08:00 Temperature 97.7 F Pulse Rate 66 Respiratory Rate 18 Blood Pressure 122/71 Pulse Oximetry 94 L Intake & Output 09/24/18 09/25/18 09/25/18 18:59 06:59 18:59 Intake Total 220 / 220 Balance 220 / 220 Weight 88.6 kg Intake: Oral 220 / 220 Other: # Voids 3 Date of Last Bowel Movement 09/22/18 09/25/18 <Keith Ramírez K - 09/25/18 13:58> Vital Signs 09/24/18 12:00 09/24/18 16:00 09/24/18 20:00 Temperature 97.9 F 98.0 F 98.0 F Pulse Rate 57 L 65 69 Respiratory Rate 18 18 18 Blood Pressure 127/69 122/65 135/71 Pulse Oximetry 95 95 96 09/25/18 00:00 09/25/18 08:00 Temperature 98.1 F 97.7 F Pulse Rate 64 66 Respiratory Rate 18 18 Blood Pressure 126/65 122/71 Pulse Oximetry 95 94 L Intake & Output 09/24/18 09/25/18 09/25/18 18:59 06:59 18:59 Intake Total 220 / 220 Balance 220 / 220 Weight 88.6 kg Intake: Oral 220 / 220 Other: # Voids 3 Date of Last Bowel Movement 09/22/18 <Jeanne Garcia - 09/25/18 11:32> Narrative: GENERAL: 58 YO male, lying in bed in [facility]. SKIN: Scaling and peeling noted on bilateral palms. Erythema with small papules noted on the fingers bilateral hands. No pus or weeping noted. Minimal swelling of the fingers CARDIOVASCULAR: Regular rate and rhythm without murmurs, gallops, or rubs. RESPIRATORY: Breath sounds equal bilaterally. No accessory muscle use. GASTROINTESTINAL: Abdomen soft, non-tender, nondistended. BS+ MUSCULOSKELETAL: No cyanosis, or edema. Left foot wrapped in Alon bandage, dressing changed yesterday. Moderate amount of yellow fluid soaked through dressing. Can wiggle his left foot toes. No numbness. <Santos LopezJeanne Rosario - 09/25/18 11:32> Assessment and Plan - Assessment (1) Cellulitis Code(s): L03.90 - Cellulitis, unspecified Status: Acute (2) Left foot infection Code(s): L08.9 - Local infection of the skin and subcutaneous tissue, unspecified Status: Acute (3) Eczema, dyshidrotic Code(s): L30.1 - Dyshidrosis [pompholyx] Status: Acute (4) Smoking addiction Code(s): F17.200 - Nicotine dependence, unspecified, uncomplicated Status: Acute (5) Nutrition, metabolism, and development symptoms Code(s): R63.8 - Other symptoms and signs concerning food and fluid intake Status: Acute <Keith Ramírez - 09/25/18 13:58> (1) Cellulitis Code(s): L03.90 - Cellulitis, unspecified Status: Acute Plan: S/p 4.5 g of Zosyn IV once and vancomycin 1 g IV once X-ray with chronic changes and no fracture -Consult to podiatry, recommend daily dressing changes and vascular consult. -Terbinafine started per podiatry recommendations yesterday -levofloxacin 500mg po qD (09/24- ) -Augmentin 875/125mg po q8h (09/24- ) -[place] 5/325mg q6h PRN -Case management home health consulted for assistance with outpatient treatment -Blood cx NGTD x5 days -Wound cultures growing Staph aureus, Pseudomonas a., and Enterococcus faecalis --bolden sensitive -Tissue cultures from surgery also growing same bacteria plus strep.-- bolden sensitive -Status post Zosyn, vancomycin and ciprofloxacin (2) Left foot infection Code(s): L08.9 - Local infection of the skin and subcutaneous tissue, unspecified Status: Acute Plan: See plan for cellulitis above (3) Eczema, dyshidrotic Code(s): L30.1 - Dyshidrosis [pompholyx] Status: Acute Plan: -Eucerin cream -Hydrocortisone 2.5% cream -Benadryl available as needed for itching (4) Smoking addiction Code(s): F17.200 - Nicotine dependence, unspecified, uncomplicated Status: Acute Plan: Nicotine patches available as needed (5) Nutrition, metabolism, and development symptoms Code(s): R63.8 - Other symptoms and signs concerning food and fluid intake Status: Acute Plan: Diet: Regular adult diet Fluids: P.o. Electrolytes: Replete as necessary DVT prophylaxis: Lovenox 40 mg daily <Jeanne Garcia - 09/25/18 11:21> - Assessment and Plan Discussed Condition With: Talia Ramírez and Damir <Jeanne Garcia - 09/25/18 11:32> - Attending Attestation The exam, history, and the medical decision-making described in the above note were completed with the assistance of the resident physician. I reviewed and agree with the findings presented. I attest that I had a [id number] encounter with the patient on the same day, and personally performed and documented my assessment and findings in the medical record. Seen with Dr Graham in AM today. Feeling the same, dressing soaked through today again. Has rash, dryness, and pruritis of bilateral hands. Will treat as dishyrdrotic eczema with high potency steroid and neutral moisturizer. For his foot, can hopefully go tomorrow if cleared by vascular and podiatry and HH set up for dressing changes. likely 14d of levaquin and augmentin therapy and podiatry f/u within one week. <Keith Ramírez - 09/25/18 13:58> <Jeanne Garcia E - Last Filed: 09/25/18 11:21> (1) Cellulitis Qualifiers: Site of cellulitis: extremity Laterality: left <Keith Ramírez K - Last Filed: 09/25/18 13:58> (1) Cellulitis Qualifiers: Site of cellulitis: extremity Laterality: left <Jeanne Garcia - Last Filed: 09/25/18 11:21> (1) Cellulitis Qualifiers: Site of cellulitis: extremity Laterality: left <Keith Ramírez - Last Filed: 09/25/18 13:58> (1) Cellulitis Qualifiers: Site of cellulitis: extremity Laterality: left
--- NOTE | 2018-09-25 12:15 | P.DCO ---
- Home Health Nursing Order: Wound care and dressing changes Instructions: Per podiatry, Dr Kaiser: Patient will need daily dressing changes with xeroform and DSD, left foot. - Case Management Consult Case Management Consult-Home Health: Yes - Certification I have seen patient Rasta Murguia on 09/25/18. My clinical findings support the need for the requested home health care services because: Infection with risk of complications I certify that my clinical findings support that this patient is homebound because: Post-op weakness
--- NOTE | 2018-09-25 14:16 | ECHRPT ---
EXAM DATE: 09/25/2018 2:01 PM EST AGE/SEX: 58 years / Male INDICATIONS: Foot infection CLINICAL DATA: This is the patient's initial encounter. Patient reports that signs and symptoms have been present for 1 week and indicates a pain score of 3/10. MEDICAL/SURGICAL HISTORY: . AAA, osteoarthritis None. COMPARISON: No prior exams available for comparison. TECHNIQUE: Four-cuff ankle and brachial pressures were obtained. Pulse cuff waveform tracings of the ankles were recorded, and ankle-brachial indices were calculated. PRESSURES (mmHg): Brachial (arm) : RIGHT: iv site, LEFT: 113 Ankle : RIGHT: 102, LEFT: 111 CURT : RIGHT: 0.90, LEFT: 0.98 TBI : RIGHT: 0.57, LEFT: 0.68 FINDINGS: Pulsed-Cuff Waveform: There are good upstroke and a dicrotic downstroke of the tracings. Other: None. CONCLUSION: 1. Slightly diminished CURT on the right. Normal CURT on the left. 2. Slightly diminished TBI bilaterally suggesting minimal intrinsic small vessel disease. Electronically signed by: Anish King MD Board Certified Radiologist 09/25/2018 2:15 PM EST
--- NOTE | 2018-09-25 19:00 | P.PNVS ---
Subjective Subjective/Hospital Course: 58-year-old male with history of abdominal aortic aneurysm repair now presents with a trauma to his left foot. Apparently he works at [email or web address] and something heavy fell on his foot caused an injury and then patient wore wet boots for another week or so. Patient then developed infection of the foot and bullae of the plantar surface of the foot consistent with essentially trench foot I examined the patient and reviewed the records Patient has palpable femoral popliteal dorsalis pedis and posterior tibial pulses He has excellent capillary refill Patient has normal vasculature and therefore does not require any further vascular workup Full consult to follow Timi J Objective Vital Signs / I&O: Vital Signs 09/24/18 20:00 09/25/18 00:00 09/25/18 08:00 Temperature 98.0 F 98.1 F 97.7 F Pulse Rate 69 64 66 Respiratory Rate 18 18 18 Blood Pressure 135/71 126/65 122/71 Pulse Oximetry 96 95 94 L 09/25/18 12:00 09/25/18 16:00 Temperature 99.4 F 98.2 F Pulse Rate 82 79 Respiratory Rate 18 18 Blood Pressure 133/61 145/65 H Pulse Oximetry 94 L 94 L Intake & Output 09/24/18 09/25/18 09/25/18 18:59 06:59 18:59 Intake Total 220 / 220 Balance 220 / 220 Weight 88.6 kg Intake: Oral 220 / 220 Other: # Voids 3 Date of Last Bowel Movement 09/22/18 09/25/18 Laboratory Results - last 24 hr 09/25/18 05:14 Sodium 138 Potassium 4.1 Chloride 107 Carbon Dioxide 23.9 Anion Gap 7 BUN 12 Creatinine 1.02 Estimated GFR 75 L Random Glucose 98 Calcium 8.4 L Microbiology 09/20/18 15:30 Aerobic Blood Culture - Final Blood - Peripheral No growth in 5 days Anaerobic Blood Culture - Final No growth in 5 days 09/20/18 15:35 Aerobic Blood Culture - Final Blood - Peripheral No growth in 5 days Anaerobic Blood Culture - Final No growth in 5 days Impressions Extremity Arterial Study 09/24/18 00:00 CONCLUSION: 1. Slightly diminished CURT on the right. Normal CURT on the left. 2. Slightly diminished TBI bilaterally suggesting minimal intrinsic small vessel disease.
[2018-09-25] MEDS ORDERED: Hydrocortisone 2.5% Cream 30 GM Tube TOPICAL SCH (21:00)
[2018-09-26 06:17] LABS: Hematocrit 49.5 % (39.0-51.0); Hemoglobin 16.7 gm/dL (13.0-17.0); Mean Corpuscular HGB Conc 33.7 % (32.0-36.0); Mean Corpuscular Hemoglobin 31.9 pg (27.0-34.0); Mean Corpuscular Volume 94.5 fL (80.0-100.0); Mean Platelet Volume 8.6 fL (7.0-11.0); Platelet Count 142 th/mm3 (150-450); Red Blood Count 5.23 mil/mm3 (4.50-5.90); Red Cell Distribution Width 13.7 % (11.6-17.2)
[2018-09-26 06:44] LABS: Calcium 8.4 mg/dL (8.5-10.1); Potassium 3.9 meq/L (3.5-5.1)
[2018-09-26] MEDS ORDERED: Enoxaparin Inj 40 MG/0.4 ML Syringe SQ SCH (09:00)
[2018-09-26] MEDS: Aspirin 325 MG Tablet PO SCH (09:32)
[2018-09-26] MEDS: Amoxicillin/Clavulanate 875/125 MG Tablet PO SCH ×2 (09:32→19:38)
[2018-09-26] MEDS: levoFLOXacin 750 MG Tablet PO SCH (09:33)
[2018-09-26] MEDS: Senna/Docusate Sodium 8.6/50 MG Tablet PO SCH (09:34)
--- NOTE | 2018-09-26 12:05 | P.PNFP ---
Subjective Interval history: Pt seen and examined this morning. His pain is well- controlled. No fever/chills, no chest pain, no shortness of breath, no nausea/ vomiting. His hands have been itching and they have developed blisters. He has been putting the steroid cream on them. He wonders he if has touched something that may have caused an allergic reaction. <Cary Caceres - 09/26/18 18:10> Results - Labs Result diagrams: 09/26/18 05:11 09/26/18 05:11 <Keith Ramírez - 09/26/18 21:33> Abnormal lab results 09/26/18 09/26/18 Range/Units 05:11 05:11 Plt Count 142 L (150-450) th/mm3 Estimated GFR 78 L (>89) mL/min Calcium 8.4 L (8.5-10.1) mg/dL Short CBC 09/26/18 Range/Units 05:11 WBC 8.0 (4.0-11.0) th/mm3 Hgb 16.7 (13.0-17.0) gm/dL Hct 49.5 (39.0-51.0) % Plt Count 142 L (150-450) th/mm3 [facility] 09/26/18 05:11 Sodium 139 Potassium 3.9 Chloride 107 Carbon Dioxide 26.0 BUN 15 Creatinine 0.98 Calcium 8.4 L <Keith Ramírez - 09/26/18 21:33> Abnormal lab results 09/26/18 09/26/18 Range/Units 05:11 05:11 Plt Count 142 L (150-450) th/mm3 Estimated GFR 78 L (>89) mL/min Calcium 8.4 L (8.5-10.1) mg/dL Short CBC 09/26/18 Range/Units 05:11 WBC 8.0 (4.0-11.0) th/mm3 Hgb 16.7 (13.0-17.0) gm/dL Hct 49.5 (39.0-51.0) % Plt Count 142 L (150-450) th/mm3 [facility] 09/26/18 05:11 Sodium 139 Potassium 3.9 Chloride 107 Carbon Dioxide 26.0 BUN 15 Creatinine 0.98 Calcium 8.4 L <Cary Caceres - 09/26/18 12:05> - Imaging Impressions Extremity Arterial Study 09/24/18 00:00 CONCLUSION: 1. Slightly diminished CURT on the right. Normal CURT on the left. 2. Slightly diminished TBI bilaterally suggesting minimal intrinsic small vessel disease. <Cary Caceres - 09/26/18 12:05> Physical Exam Vital signs: Vital Signs 09/25/18 23:59 09/26/18 08:00 09/26/18 12:00 Temperature 97.1 F L 97.3 F L 97.4 F L Pulse Rate 65 80 72 Respiratory Rate 18 17 18 Blood Pressure 125/67 126/69 155/79 H Pulse Oximetry 96 98 98 09/26/18 16:00 Temperature 97.8 F Pulse Rate 75 Respiratory Rate 18 Blood Pressure 138/78 Pulse Oximetry 99 Intake & Output 09/26/18 09/26/18 09/27/18 06:59 18:59 06:59 Intake Total 900 / 900 Balance 900 / 900 Weight 88.6 kg Intake: Oral 900 / 900 Other: # Voids 3 Date of Last Bowel Movement 09/25/18 <Keith Ramírez - 09/26/18 21:33> Vital Signs 09/25/18 16:00 09/25/18 20:00 09/25/18 23:59 Temperature 98.2 F 97.7 F 97.1 F L Pulse Rate 79 74 65 Respiratory Rate 18 18 18 Blood Pressure 145/65 H 135/69 125/67 Pulse Oximetry 94 L 96 96 09/26/18 08:00 Temperature 97.3 F L Pulse Rate 80 Respiratory Rate 17 Blood Pressure 126/69 Pulse Oximetry 98 Intake & Output 09/25/18 09/26/18 09/26/18 18:59 06:59 18:59 Intake Total 900 / 900 Balance 900 / 900 Weight 88.6 kg Intake: Oral 900 / 900 Other: # Voids 3 Date of Last Bowel Movement 09/25/18 09/25/18 <Cary Caceres - 09/26/18 12:05> Narrative: GENERAL: 58 YO male, sitting in bed in [facility]. SKIN: Scaling and peeling noted on bilateral palms. Erythema with multiple small bullous lesions covering bilateral hands. Some have ruptured. Larger 2cm x1cm bullous on left palm. No pus or weeping noted. Swelling of the fingers. CARDIOVASCULAR: Regular rate and rhythm without murmurs, gallops, or rubs. RESPIRATORY: Breath sounds equal bilaterally. No accessory muscle use. GASTROINTESTINAL: Abdomen soft, non-tender, nondistended. BS+ MUSCULOSKELETAL: No cyanosis, or edema. Left foot wrapped in Alon bandage, dressing changed yesterday. Moderate amount of yellow fluid soaked through dressing. Can wiggle his left foot toes. No numbness. <Cary Caceres - 09/26/18 18:10> Assessment and Plan - Assessment (1) Cellulitis Code(s): L03.90 - Cellulitis, unspecified Status: Acute (2) Left foot infection Code(s): L08.9 - Local infection of the skin and subcutaneous tissue, unspecified Status: Acute (3) Eczema, dyshidrotic Code(s): L30.1 - Dyshidrosis [pompholyx] Status: Acute (4) Smoking addiction Code(s): F17.200 - Nicotine dependence, unspecified, uncomplicated Status: Acute (5) Nutrition, metabolism, and development symptoms Code(s): R63.8 - Other symptoms and signs concerning food and fluid intake Status: Acute <Keith Ramírez Anne - 09/26/18 21:33> (1) Cellulitis Code(s): L03.90 - Cellulitis, unspecified Status: Acute Plan: S/p 4.5 g of Zosyn IV once and vancomycin 1 g IV once X-ray with chronic changes and no fracture -Consult to podiatry, recommend daily dressing changes and vascular consult. -Terbinafine started per podiatry recommendations -levofloxacin 500mg po qD (09/24- ) -Augmentin 875/125mg po q8h (09/24- ) -[place] 5/325mg q6h PRN -Case management home health consulted for assistance with outpatient treatment -Blood cx NGTD x5 days -Wound cultures growing Staph aureus, Pseudomonas a., and Enterococcus faecalis --bolden sensitive -Tissue cultures from surgery also growing same bacteria plus strep.-- bolden sensitive -Status post Zosyn, vancomycin and ciprofloxacin (2) Left foot infection Code(s): L08.9 - Local infection of the skin and subcutaneous tissue, unspecified Status: Acute Plan: See plan for cellulitis above (3) Eczema, dyshidrotic Code(s): L30.1 - Dyshidrosis [pompholyx] Status: Acute Plan: Worsened from yesterday with multiple bullous lesions -Eucerin cream -Triamcinolone 0.1% cream -Benadryl available as needed for itching (4) Smoking addiction Code(s): F17.200 - Nicotine dependence, unspecified, uncomplicated Status: Acute Plan: Nicotine patches available as needed (5) Nutrition, metabolism, and development symptoms Code(s): R63.8 - Other symptoms and signs concerning food and fluid intake Status: Acute Plan: Diet: Regular adult diet Fluids: P.o. Electrolytes: Replete as necessary DVT prophylaxis: Lovenox 40 mg daily <Cary Caceres - 09/26/18 17:58> - Attending Attestation The exam, history, and the medical decision-making described in the above note were completed with the assistance of the resident physician. I reviewed and agree with the findings presented. I attest that I had a [id number] encounter with the patient on the same day, and personally performed and documented my assessment and findings in the medical record. ABIs normal, no need for vascular follow up. For his foot, d/c with wound care, already set up. podiatry f/u in 1 wk. continue levaquin/augmentin/terbinafine for 14d total antimicrobial therapy. Rash on hands less pruritic today after steroid cream, started before transition to PO antibiotics and since he is on adequate abx unlikely an infectious spread. more likely drug rash, v contact/irritant dermatitis from new lotions in hospital given for wound care. can d/c today <Keith Ramírez - 09/26/18 21:33> <Cary Caceres Maty - Last Filed: 09/26/18 17:58> (1) Cellulitis Qualifiers: Site of cellulitis: extremity Laterality: left <Keith Ramírez Ayah Last Filed: 09/26/18 21:33> (1) Cellulitis Qualifiers: Site of cellulitis: extremity Laterality: left <Cary Caceres Maty - Last Filed: 09/26/18 17:58> (1) Cellulitis Qualifiers: Site of cellulitis: extremity Laterality: left <Keith Ramírez - Last Filed: 09/26/18 21:33> (1) Cellulitis Qualifiers: Site of cellulitis: extremity Laterality: left
[2018-09-26 12:31] VITALS: RESP 18
[2018-09-26 16:20] VITALS: BP 138/78; PULSE 75; TEMP 97.8; O2SAT 99
--- NOTE | 2018-09-27 08:28 | MB ---
cc: Caio Gamble MD DATE: 09/25/2018 REASON FOR CONSULTATION: Peripheral vascular disease with ischemia of the leg, gangrenous bullous changes of the foot. HISTORY OF PRESENT DISEASE: This is a 58-year-old male who presents to the hospital after he slipped in grease about a month ago, injuring his left foot, creating lacerations on the foot. The patient since then has been trying to heal that himself, but wears usually wet clothing and boots because of the nature of the work he does. The patient went to [facility] and was treated there. Now, he comes to the hospital with bullous changes of his left forefoot and edema, essentially a trench foot. Question arises about vascular supply of the same. PAST MEDICAL HISTORY: Poor dentition. PAST SURGICAL HISTORY: Abdominal aortic aneurysm repair in the past. ALLERGIES: NONE. SOCIAL HISTORY: The patient does not drink, but smoked since the age of 11, about 1 to 1-1/2 pack a day. MEDICATIONS: Can be found in the record. PHYSICAL EXAMINATION: GENERAL: A pleasant 58-year-old gentleman in no acute distress. HEENT: Normocephalic. No trauma to the head. Pupils are equal and reactive. Extraocular muscles are intact. NECK: Supple. Bilateral good pulses. No bruits. No step-offs. No signs of pathology to the neck. Thyroid is not palpable. CHEST: Bilateral breath sounds. HEART: Regular rhythm. ABDOMEN: Soft. Active bowel sounds. No rebound, no guarding, no masses. EXTREMITIES: The patient has palpable femoral, popliteal, dorsalis pedis, and posterior tibial pulses bilateral. The patient has excellent capillary refill. He indeed has debrided bulla on his foot, and dressing is intact. RECOMMENDATIONS: This patient has normal blood supply by clinical exam and therefore does not require any further clinical diagnostic studies. However, I completely agree with podiatry and infectious disease as far as the management is concerned. I do not believe the patient will require any vascular intervention at this time. I thank you very much for the referral. I will continue to follow the patient with you. MD GERALD Johnson/alina/braulio Mccarty: 09/26/2018, 05:25 PM , 05:33 PM
--- NOTE | 2018-09-27 10:45 | P.DS ---
Date of admission: 09/20/18 17:02 Primary care physician: [facility] Brief History from admission: Mr Murguia, work [employer], about a month ago a grease bucket slipped from hand and fell into L foot, creating a laceration. Small scrape, did not bleed. Boot was tore. Pt went to [facility], and received antibiotics for one week. With improvement, but since then it started progresively getting worse. Today He saw a Dr at the [facility], and was told to come to ED for evaluation. Pt states is painful , aching, if wrapped in bandages is a pulsating pain. From time to time he gets a sharp pain, he thinks is nerve pain. Wound is also oozing clear/ pink discharge from all over, to the point ot wets his entire socks. Cannot tell temperature difference. No fevers, no chills. PMH: rectal muscle fascia separation. Poor dentition Surgeries: none Social: Used to be in the [employer] for 3 yrs, now works at [employer] as a cook. Lives with , for 22 yrs. Smokes a pack/ days, cigarettes, smoked since 11. Never quit smoking. Does not drink alcohol. Denies recreational drug use. Family: Mother, living, has one lung, unknown etiology. Sister, healthy as far as he knows. Medications: none Allergies: NKA DS: Diagnosis - Discharge Diagnosis (1) Cellulitis Status: Acute (2) Left foot infection Status: Acute (3) Eczema, dyshidrotic Status: Acute (4) Smoking addiction Status: Acute (5) Nutrition, metabolism, and development symptoms Status: Acute DS: Medications - Discharge Medications Prescriptions: amoxicillin-pot clavulanate 1 tab PO Q12HR 8 Days tab levofloxacin 750 mg PO DAILY 8 Days #8 tab terbinafine HCl 250 mg PO DAILY 14 Days #14 tab triamcinolone acetonide 1 applic TOPICAL BID #1 bottle DS: Summary Hospital Course: Mr Murguia was admitted on 09/20 for worsening L foot infection after failing outpatient treatment. Patient placed on Zosyn with cultures taken. No evidence of osteomyelitis on imaging. Podiatry was consulted. I&D of left foot performed on 09/[address] Clark. Patient continued to improve clinically. Oral antifungal was added and patient was transitioned to oral antibiotics. Vascular surgery was consulted. ABIs relatively unremarkable and no further workup for vascular surgery was recommended at this time. During the patient's hospital stay the pruritus and erythema on his hands worsened and he began to develop some bulla consideration of drug reaction versus contact dermatitis. Patient was treated with topical steroids. Patient was discharged home in stable condition on 09/26 with orders for home health to help with wound dressing changes and follow-up with Dr. Clark within a week. Patient was given 14 days of terbinafine, Levaquin, Augmentin. - Time Spent with Patient Total time spent providing and/or coordinating discharge services: Less than 30 minutes - Quality: VTE Deep Vein Thrombosis/Pulmonary Embolism Present on Admission: No Exam Vital signs: Vital Signs 09/26/18 12:00 09/26/18 16:00 Temperature 97.4 F L 97.8 F Pulse Rate 72 75 Respiratory Rate 18 18 Blood Pressure 155/79 H 138/78 Pulse Oximetry 98 99 Intake & Output 09/26/18 09/27/18 09/27/18 18:59 06:59 18:59 Other: Date of Last Bowel Movement 09/25/18 Results Procedures completed during hospitalization: I&D of left foot wound with Dr. Clark on 09/21 - Impressions ITS Impressions Foot MRI 09/20/18 00:00 CONCLUSION: 1. Ill-defined soft tissue edema and enhancement of the forefoot, most prominent at the great toe indicating cellulitis in the proper clinical setting. No evidence of peripherally enhancing fluid collection/abscess. 2. No evidence of osteomyelitis. Foot X-Ray 09/20/18 15:09 CONCLUSION: Chronic changes and no definite fracture for technique. Extremity Arterial Study 09/24/18 00:00 CONCLUSION: 1. Slightly diminished CURT on the right. Normal CURT on the left. 2. Slightly diminished TBI bilaterally suggesting minimal intrinsic small vessel disease. Discharge Plan - Discharge Disposition Patient Disposition: Disch W/Home Health Service - Discharge Condition Condition: Stable - Discharge Order Discharge Orders: Discharge Order (Routine); Ordered 09/26/18 Ordered By: Keith Ramírez - Discharge Details Anticipated Discharge Date: 09/26/18 - Physicians Team Primary Care Provider: [facility] Attending Provider: Keith Ramírez Other Providers: William Cole DPM ; Caio Gamble MD
--- NOTE | 2018-09-27 16:02 | MP ---
cc: Archie Clark DPOsiel DATE OF OPERATION: 09/21/2018 The patient presented after having a grease bucket at the [employer] land on his feet. 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 He was then noted after that to have large bullous lesions to the plantar aspect of his toes and foot that appear to be infected. He was concerned and came to the emergency room. I discussed with him the risks, benefits, and potential complications of surgery and he agreed to undergo incision and drainage of left foot abscess. The patient was seen in preop holding by myself, nursing staff, and anesthesia, where the correct patient, side, and site were all confirmed to be correct, in the left foot. He was then taken to the surgical suite in supine position. The left foot was prepped and draped in normal sterile fashion. After a timeout were performed per facility protocol, the left foot incision was made in order to incise and drain the large bulla noted to the plantar toes 1 through 5 on the left foot, as well as the plantar forefoot area. No deep abscess was noted, it appeared to be very superficial without deep or fluctuant material. No purulence was noted, but there was serous drainage noted, but no purulent material. At this time, the bullous lesions were deroofed and appeared to be very superficial and raw to the underlying tissue, followed by irrigation with 3 liters of normal sterile saline and a dressing consisting of Xeroform to all the forefoot and toes, 4 x 4's, ABD pads, cast padding, and Alon bandage to the left foot. The patient tolerated the procedure and anesthesia well without complications and was taken back to PACU with vital signs stable and vascular status intact to the left foot. He will be weightbearing as tolerated to the heel only in the surgical shoe. We will await cultures and he will be reevaluated to determine if he needs further irrigation and debridement in the coming days. SHORT OPERATIVE NOTE IT ADMINISTRATIVE ASSISTANT: Staff. PREOPERATIVE DIAGNOSIS: Abscess, left foot. POSTOPERATIVE DIAGNOSIS: Abscess, left foot. PROCEDURE PERFORMED: Incision and drainage, left foot abscess. PROPHYLAXIS: On IV antibiotics already. PATHOLOGY: Culture, left foot. ANESTHESIA: General endotracheal anesthesia plus local and ankle block consisting of 20 mL 0.25% Marcaine plain. ESTIMATED BLOOD LOSS: 5 mL. CONDITION: Stable to PACU. DISPOSITION: Weightbearing as tolerated to heel touch only in surgical shoe and we will continue to monitor in the coming days to determine if further treatment is required. JACKIE Barry , 03:35 PM , 03:42 PM
== END 2018-09-26 20:01 | disposition home health service (06) | DRG 603 ==
LOC: NEPD 11:35 → NEDA 17:02 → NEPHCDU 20:05 → N07 09-21 18:41 → HPAC 09-22 04:51 → N07 09-22 10:47
PROVIDERS: ADMIT Family Medicine; ATTEND Family Medicine
CPT/HCPCS: 73630; 73720; 80048; 80053; 80202; 82040; 83036; 85025; 85027; 85651; 85652; 86140; 86403; 87015; 87040; 87070; 87077; 87102; 87116; 87147; 87176; 87186; 87205; 87206; 90765; 90767; 93005; 93922; 96365; 96367; 97110; 97116; 97162; 97165; 99285; A9585; J0744; J1650; J2270; J2543; J3010; J3370; J7040; J7050; L3250